=== PATIENT | male | born 1940 | race Caucasian/White ===

== ENCOUNTER 2022-09-27 15:17 | Inpatient (IN) | payer MEDICARE, OTHER ==
--- NOTE | 2022-09-27 15:57 | ED ---
General Adult HPI - General Chief complaint: Recheck/Abnormal Lab/Rx Stated complaint: Fever, Low O2 Time Seen by Provider: 09/27/22 15:56 Source: patient, family Mode of arrival: ambulatory Limitations: no limitations - History of Present Illness Initial comments: Patient presents to the ED with his and daughter for evaluation. Patient is on vacation in town from [place]. Per , the patient has had an intermittent fever for the past 3 days, as well as a cough and rhinorrhea. Per , the patient was seen by an urgent care provider a couple of days ago and diagnosed with "double pneumonia" by physical examination only. states the patient did not have a chest x-ray performed. states that the patient finished a three-week course of levofloxacin yesterday that he was prescribed after being diagnosed with "E. coli and pseudomonas infections of his lungs and sinuses". states that the patient is up-to-date on his Covid and influenza immunizations, and he had negative Covid and influenza tests performed at the urgent care a couple of days ago. states that she has been giving the patient extra strength Tylenol for his fever, and she last gave him a dose of it earlier today. states that they obtained an O2 sat reading of 88% using a home O2 device today, and that is why they have brought him to the ED. Patient admits to having mild dyspnea. Patient also admits to having mild urinary frequency. Patient denies having any pain, headache, focal neuro deficit, neck pain or stiffness, sore throat, chest pain or pressure, hemoptysis, palpitations, dizziness, syncope, abdominal pain, nausea/vomiting/diarrhea, bloody or melanotic stool, dysuria, hematuria, decreased urine output, leg or calf swelling or pain, or any other symptoms or complaints. - Related Data Allergies Allergy/AdvReac Type Severity Reaction Status Date / Time No Known Allergies Allergy Verified 09/27/22 15:26 Review of Systems ROS Statement: Those systems with pertinent positive or pertinent negative responses have been documented in the HPI. ROS Other: All systems not noted in ROS Statement are negative. Past Medical History Past Medical History: Atrial Fibrillation, Coronary Artery Disease (CAD), Cancer, COPD, Diabetes Mellitus, Hyperlipidemia, Hypertension, Pneumonia, Thyroid Disorder Additional Past Medical History / Comment(s): gout, colon cancer, pulmonary fibrosis, bronchiectasis History of Any Multi-Drug Resistant Organisms: Unobtainable Past Surgical History: Bowel Resection, Heart Catheterization With Stent, Hernia Repair, Pacemaker Past Psychological History: No Psychological Hx Reported Smoking Status: Former smoker Past Alcohol Use History: None Reported Past Drug Use History: None Reported General Exam Limitations: no limitations General appearance: alert, in no apparent distress Head exam: Present: normocephalic Eye exam: Present: normal appearance ENT exam: Present: normal oropharynx, mucous membranes moist Neck exam: Present: other (Trachea is in midline). Absent: tenderness, meningismus Respiratory exam: Present: normal lung sounds bilaterally. Absent: respiratory distress, wheezes, rales, rhonchi, stridor Cardiovascular Exam: Present: regular rate, normal rhythm, normal heart sounds, other (Normal radial pulses bilaterally) GI/Abdominal exam: Present: soft. Absent: distended, tenderness, guarding Extremities exam: Present: other (Negative Homans sign bilaterally). Absent: tenderness, pedal edema, calf tenderness Back exam: Absent: CVA tenderness (R), CVA tenderness (L) Neurological exam: Present: alert, oriented X3 Psychiatric exam: Present: normal affect, normal mood Skin exam: Present: warm, dry, intact, normal color Course Vital Signs 09/27/22 09/27/22 15:19 18:18 Temperature 98.5 F 100.1 F H Pulse Rate 82 76 Respiratory 22 15 Rate Blood Pressure 128/63 132/66 O2 Sat by Pulse 94 L 95 Oximetry - Reevaluation(s) Reevaluation #1: 09/27/22 18:00 Patient denies development of any new symptoms while in the ED. Patient remains alert and breathing comfortably. Patient and are aware of the patient's test results, and patient agrees with hospital admission at this time. 09/27/22 18:26 Case, H&P, test results and ED management thus far were discussed with Dr. Moss. She accepts hospital admission. He agrees with infectious disease consultation. She has no further recommendations at this time. EKG Findings - EKG Comments: EKG Findings:: ED physician interpretation (interpreted by me): Sinus rhythm with first-degree AV block, ventricular rate of 75 bpm, VT interval of 228 ms, normal QRS duration, normal QT interval, borderline rightward axis, inferolateral ST and T-wave abnormality, no ST elevation, no old EKG is available for comparison Medical Decision Making - Medical Decision Making Was pt. sent in by a medical professional or institution (ANDRY Ely, SPORTS INFORMATION DIRECTOR, urgent care, hospital, or intermediate...) When possible be specific @ -No Did you speak to anyone other than the patient for history (EMS, parent, family, police, friend...)? What history was obtained from this source @ -History was also obtained from the patient's . Did you review nursing and triage notes (agree or disagree)? Why? @ -I reviewed and agree with nursing and triage notes Were old charts reviewed (outside hosp., previous admission, EMS record, old EKG, old radiological studies, urgent care reports/EKG's, intermediate records)? Report findings @ -No old charts were reviewed Differential Diagnosis (chest pain, altered mental status, abdominal pain women, abdominal pain men, vaginal bleeding, weakness, fever, dyspnea, syncope, headache, dizziness, GI bleed, back pain, seizure, CVA, palpatations, mental health, musculoskeletal)? @ -Differential Fever: Pneumonia, viral URI, Covid, bronchitis, influenza, endocarditis, myocarditis, sinusitis, UTI, pyelonephritis, prostatitis, hypoxia, COPD, this is not meant to be an all-inclusive list. EKG interpreted by me (3pts min.). @ -As above X-rays interpreted by me (1pt min.). @ -Chest x-ray was reviewed myself and shows a left basilar infiltrate consistent with pneumonia. I agree with the radiologist's interpretation as above. CT interpreted by me (1pt min.). @ -None done U/S interpreted by me (1pt. min.). @ -None done What testing was considered but not performed or refused? (CT, X-rays, U/S, labs)? Why? @ -None What meds were considered but not given or refused? Why? @ -None Did you discuss the management of the patient with other professionals (professionals i.e. ANDRY Ely, SPORTS INFORMATION DIRECTOR, lab, RT, psych nurse, social media intern, board certified behavioral analyst, teacher, property disposal officer, case maker)? Give summary @ -No Was smoking cessation discussed for >3mins.? @ -No Was critical care preformed (if so, how long)? @ -No Were there social determinants of health that impacted care today? How? (Homelessness, low income, unemployed, alcoholism, drug addiction, transportation, low edu. Level, literacy, decrease access to med. care, [facility], rehab)? @ -No Was there de-escalation of care discussed even if they declined (Discuss DNR or withdrawal of care, Hospice)? DNR status @ -No What co-morbidities impacted this encounter? (DM, HTN, Smoking, COPD, CAD, Cancer, CVA, ARF, Chemo, Hep., AIDS, mental health diagnosis, sleep apnea, morbid obesity)? @ -None Was patient admitted / discharged? Hospital course, mention meds given and route, prescriptions, significant lab abnormalities, going to OR and other pertinent info. @ -Given the patient's fever, chest x-ray findings consistent with pneumonia and reported hypoxia, will admit the patient to the hospital for IV and about treatment. Patient's reports that the patient recently completed a 3 week course of Levaquin, which complicates the patient's pneumonia treatment. IV cefepime has been ordered and administered in the ED after cultures were ob tained. Infectious disease consultation order has been placed. Dr. Moss has accepted hospital admission. Undiagnosed new problem with uncertain prognosis? @ -No Drug Therapy requiring intensive monitoring for toxicity (Heparin, Nitro, Insuli n, Cardizem)? @ -No Were any procedures done? @ -No Diagnosis/symptom? @ -Acute febrile illness Acute, or Chronic, or Acute on Chronic? @ -Acute Uncomplicated (without systemic symptoms) or Complicated (systemic symptoms)? @ -default Side effects of treatment? @ -No Exacerbation, Progression, or Severe Exacerbation? @ -No Poses a threat to life or bodily function? How? (Chest pain, [place], [place], pneumonia, PE, COPD, DKA, ARF, appy, cholecystitis, CVA, Diverticulitis, Homicidal, Suicidal, threat to staff... and all critical care pts) @ -No Diagnosis/symptom? @ -Left-sided pneumonia Acute, or Chronic, or Acute on Chronic? @ -default Uncomplicated (without systemic symptoms) or Complicated (systemic symptoms)? @ -default Side effects of treatment? @ -none Exacerbation, Progression, or Severe Exacerbation] @ -no Poses a threat to life or bodily function? @ -no - Lab Data Result diagrams: 09/27/22 16:35 09/27/22 16:59 Lab Results 09/27/22 09/27/22 09/27/22 Range/Units 16:35 16:59 16:59 WBC 13.2 H (3.8-10.6) k/uL RBC 4.53 (4.30-5.90) m/uL Hgb 14.4 (13.0-17.5) gm/dL Hct 43.3 (39.0-53.0) % MCV 95.8 (80.0-100.0) fL MCH 31.9 (25.0-35.0) pg MCHC 33.3 (31.0-37.0) g/dL RDW 13.7 (11.5-15.5) % Plt Count 202 (150-450) k/uL MPV 8.2 Neutrophils % 86 % Lymphocytes % 4 % Monocytes % 7 % Eosinophils % 1 % Basophils % 0 % Neutrophils # 11.4 H (1.3-7.7) k/uL Lymphocytes # 0.6 L (1.0-4.8) k/uL Monocytes # 0.9 (0-1.0) k/uL Eosinophils # 0.1 (0-0.7) k/uL Basophils # 0.0 (0-0.2) k/uL PT 10.0 (9.0-12.0) sec INR 0.9 (<1.2) APTT 25.9 (22.0-30.0) sec Sodium 133 L (137-145) mmol/L Potassium 4.6 (3.5-5.1) mmol/L Chloride 99 (98-107) mmol/L Carbon Dioxide 25 (22-30) mmol/L Anion Gap 9 mmol/L BUN 34 H (9-20) mg/dL Creatinine 1.33 H (0.66-1.25) mg/dL Est GFR (CKD-EPI)AfAm 58 (>60 ml/min/1.73 sqM) Est GFR (CKD-EPI)NonAf 50 (>60 ml/min/1.73 sqM) Glucose 211 H (74-99) mg/dL Plasma Lactic Acid Sudhakar (0.7-2.0) mmol/L Calcium 8.4 (8.4-10.2) mg/dL Total Bilirubin 1.1 (0.2-1.3) mg/dL AST 43 (17-59) U/L ALT 26 (4-49) U/L Alkaline Phosphatase 56 (38-126) U/L Troponin I (0.000-0.034) ng/mL Total Protein 6.2 L (6.3-8.2) g/dL Albumin 3.3 L (3.5-5.0) g/dL Urine RBC (0-5) /hpf Urine WBC (0-5) /hpf Ur Squamous Epith Cells (0-4) /hpf Urine Mucus (None) /hpf Influenza Type A (PCR) (Not Detectd) Influenza Type B (PCR) (Not Detectd) RSV (PCR) (Not Detectd) SARS-CoV-2 (PCR) (Not Detectd) 09/27/22 09/27/22 09/27/22 Range/Units 16:59 16:59 17:09 WBC (3.8-10.6) k/uL RBC (4.30-5.90) m/uL Hgb (13.0-17.5) gm/dL Hct (39.0-53.0) % MCV (80.0-100.0) fL MCH (25.0-35.0) pg MCHC (31.0-37.0) g/dL RDW (11.5-15.5) % Plt Count (150-450) k/uL MPV Neutrophils % % Lymphocytes % % Monocytes % % Eosinophils % % Basophils % % Neutrophils # (1.3-7.7) k/uL Lymphocytes # (1.0-4.8) k/uL Monocytes # (0-1.0) k/uL Eosinophils # (0-0.7) k/uL Basophils # (0-0.2) k/uL PT (9.0-12.0) sec INR (<1.2) APTT (22.0-30.0) sec Sodium (137-145) mmol/L Potassium (3.5-5.1) mmol/L Chloride (98-107) mmol/L Carbon Dioxide (22-30) mmol/L Anion Gap mmol/L BUN (9-20) mg/dL Creatinine (0.66-1.25) mg/dL Est GFR (CKD-EPI)AfAm (>60 ml/min/1.73 sqM) Est GFR (CKD-EPI)NonAf (>60 ml/min/1.73 sqM) Glucose (74-99) mg/dL Plasma Lactic Acid Sudhakar 1.4 (0.7-2.0) mmol/L Calcium (8.4-10.2) mg/dL Total Bilirubin (0.2-1.3) mg/dL AST (17-59) U/L ALT (4-49) U/L Alkaline Phosphatase (38-126) U/L Troponin I 0.020 (0.000-0.034) ng/mL Total Protein (6.3-8.2) g/dL Albumin (3.5-5.0) g/dL Urine RBC 1 (0-5) /hpf Urine WBC 1 (0-5) /hpf Ur Squamous Epith Cells <1 (0-4) /hpf Urine Mucus Rare H (None) /hpf Influenza Type A (PCR) (Not Detectd) Influenza Type B (PCR) (Not Detectd) RSV (PCR) (Not Detectd) SARS-CoV-2 (PCR) (Not Detectd) 09/27/22 Range/Units 17:09 WBC (3.8-10.6) k/uL RBC (4.30-5.90) m/uL Hgb (13.0-17.5) gm/dL Hct (39.0-53.0) % MCV (80.0-100.0) fL MCH (25.0-35.0) pg MCHC (31.0-37.0) g/dL RDW (11.5-15.5) % Plt Count (150-450) k/uL MPV Neutrophils % % Lymphocytes % % Monocytes % % Eosinophils % % Basophils % % Neutrophils # (1.3-7.7) k/uL Lymphocytes # (1.0-4.8) k/uL Monocytes # (0-1.0) k/uL Eosinophils # (0-0.7) k/uL Basophils # (0-0.2) k/uL PT (9.0-12.0) sec INR (<1.2) APTT (22.0-30.0) sec Sodium (137-145) mmol/L Potassium (3.5-5.1) mmol/L Chloride (98-107) mmol/L Carbon Dioxide (22-30) mmol/L Anion Gap mmol/L BUN (9-20) mg/dL Creatinine (0.66-1.25) mg/dL Est GFR (CKD-EPI)AfAm (>60 ml/min/1.73 sqM) Est GFR (CKD-EPI)NonAf (>60 ml/min/1.73 sqM) Glucose (74-99) mg/dL Plasma Lactic Acid Sudhakar (0.7-2.0) mmol/L Calcium (8.4-10.2) mg/dL Total Bilirubin (0.2-1.3) mg/dL AST (17-59) U/L ALT (4-49) U/L Alkaline Phosphatase (38-126) U/L Troponin I (0.000-0.034) ng/mL Total Protein (6.3-8.2) g/dL Albumin (3.5-5.0) g/dL Urine RBC (0-5) /hpf Urine WBC (0-5) /hpf Ur Squamous Epith Cells (0-4) /hpf Urine Mucus (None) /hpf Influenza Type A (PCR) Not Detected (Not Detectd) Influenza Type B (PCR) Not Detected (Not Detectd) RSV (PCR) Not Detected (Not Detectd) SARS-CoV-2 (PCR) Not Detected (Not Detectd) - Radiology Data Chest x-ray: 1. Left basilar infiltrate. Findings can be compatible with pneumonia in the proper clinical setting. Disposition Clinical Impression: Pneumonia, Acute febrile illness Disposition: ADMITTED IP TO THIS [facility] Condition: Stable Is patient prescribed a controlled substance at d/c from ED?: No Referrals: Nonstaff,Physician [Primary Care Provider] - 1-2 days Time of Disposition: 18:26
[2022-09-27 17:04] LABS: Basophils % (A) 0 %; Eosinophils # (A) 0.1 k/uL (0-0.7); Eosinophils % (A) 1 %; HCT 43.3 % (39.0-53.0); HGB 14.4 gm/dL (13.0-17.5); Lymphocytes # (A) 0.6 k/uL (1.0-4.8); Lymphocytes % (A) 4 %; MCH 31.9 pg (25.0-35.0); MCHC 33.3 g/dL (31.0-37.0); MCV 95.8 fL (80.0-100.0); Mean Platelet Volume 8.2; Monocytes # (A) 0.9 k/uL (0-1.0); Monocytes % (A) 7 %; Neutrophils # (A) 11.4 k/uL (1.3-7.7); Neutrophils % (A) 86 %; Platelet Count 202 k/uL (150-450); RBC 4.53 m/uL (4.30-5.90); RDW 13.7 % (11.5-15.5); WBC 13.2 k/uL (3.8-10.6)
[2022-09-27 17:15] LABS: ALT 26 U/L (4-49); African American GFR (CKD) 58 (>60 ml/min/1.73 sqM); Albumin 3.3 g/dL (3.5-5.0); Anion Gap 9 mmol/L; Blood Urea Nitrogen 34 mg/dL (9-20); Calcium 8.4 mg/dL (8.4-10.2); Carbon Dioxide 25 mmol/L (22-30); Chloride 99 mmol/L (98-107); Glucose 211 mg/dL (74-99); INR 0.9 (<1.2); Non-African American GFR(CKD) 50 (>60 ml/min/1.73 sqM); Partial Thromboplastin Time 25.9 sec (22.0-30.0); Sodium 133 mmol/L (137-145); Total Bilirubin 1.1 mg/dL (0.2-1.3); Total Protein 6.2 g/dL (6.3-8.2)
--- NOTE | 2022-09-27 17:16 | XR ---
EXAMINATION TYPE: XR chest 2V DATE OF EXAM: 09/27/2022 COMPARISON: None INDICATION: Fever, recent diagnosis of pneumonia TECHNIQUE: Frontal and lateral views of the chest are obtained. FINDINGS: The heart size is normal. The pulmonary vasculature is normal. Mild infiltrate is at the left base. Coronal for atelectasis or pneumonia. Minimal blunting of the ri ght costophrenic angle may be atelectasis or small effusion. Posterior infiltrate may be present on t he lateral projection.. IMPRESSION: 1. Left basilar infiltrate. Findings can be compatible with pneumonia in the proper clinical setting.
[2022-09-27 17:25] LABS: Mucus,Urine Rare /hpf; RBC,Urine 1 /hpf (0-5); Squamous Epithelial Cell,Urine <1 /hpf (0-4); WBC,Urine 1 /hpf (0-5)
[2022-09-27 17:30] LABS: AST 43 U/L (17-59); Alkaline Phosphatase 56 U/L (38-126)
[2022-09-27 17:31] LABS: Potassium 4.6 mmol/L (3.5-5.1)
[2022-09-27] MEDS ORDERED: CEFEPIME 2 GM in SODIUM CHLORIDE 0.9% 100 ML IVPB STA (17:47)
[2022-09-27] MEDS ORDERED: SODIUM CHLORIDE 0.9% 500 ML 500 ML IV ONE (17:52)
[2022-09-27] MEDS ORDERED: ACETAMINOPHEN TAB 500 MG TAB PO STA (18:20)
[2022-09-27] MEDS ORDERED: NALOXONE 0.4 MG/ML 1 ML VIAL IV PRN (18:39)
[2022-09-27 18:48] LABS: Appearance,Urine Clear (Clear); Bilirubin,Urine Negative (Negative); Blood,Urine Negative (Negative); Color,Urine Yellow; Glucose,Urine (UA) 4+ (Negative); Ketones,Urine Negative (Negative); Leukocyte Esterase,Urine Negative (Negative); Nitrite,Urine Negative (Negative); Protein,Urine 1+ (Negative); Specific Gravity,Urine 1.035 (1.001-1.035); Urobilinogen,Urine <2.0 mg/dL (<2.0)
[2022-09-27] MEDS: carvediloL 6.25 MG TAB PO SCH (21:34)
[2022-09-27] MEDS: ATORVASTATIN 40 MG TAB PO SCH (21:34)
[2022-09-27] MEDS: GLIMEPIRIDE 2 MG TAB PO SCH (21:35)
[2022-09-27] MEDS: EZETIMIBE 10 MG TAB PO SCH (21:35)
[2022-09-27] MEDS: ACETAMINOPHEN TAB 325 MG TAB PO PRN (23:56)
[2022-09-27] MEDS: guaiFENesin SYRUP 100MG/5ML 200 MG/10 ML CUP PO PRN (23:56)
[2022-09-27] MEDS: SACUBITRIL/VALSARTAN 24 MG-26 MG TABLET PO SCH (23:57)
[2022-09-28] MEDS: LEVOTHYROXINE 100 MCG TAB PO SCH (06:20)
[2022-09-28 07:16] LABS: Glucose,Whole Blood 109 mg/dL (70-110)
[2022-09-28] MEDS: IPRATROPIUM 0.5 MG/2.5 ML NEBU INHALATION SCH ×4 (07:34→22:33)
[2022-09-28] MEDS: SYMBICORT 80-4.5 MCG INHALER INHALATION SCH ×2 (07:34→22:34)
[2022-09-28] MEDS ORDERED: NON FORMULARY DRUG (Fluticasone/Umeclidin/Vilanter [Trelegy Ellipta 100-62.5-25] 1 EACH Bl INHALATION SCH (08:00)
[2022-09-28 09:05] LABS: HCT 39.5 % (39.6-50.0); HGB 12.9 d/dL (13.0-17.0); MCH 30.8 pg (27.0-32.0); MCHC 32.7 d/dL (32.0-37.0); MCV 94.3 FL (80.0-97.0); Mean Platelet Volume 10.6 FL (9.5-12.2); NRBC Per 100 WBC 0 X 10*3/uL (0.00-0.01); Platelet Count 217 X 10*3/uL (140-440); RBC 4.19 X 10*6/uL (4.40-5.60); RDW 14.3 % (11.5-14.5)
[2022-09-28 09:12] LABS: BUN/Creat Ratio 20.62 Ratio (12.00-20.00); Blood Urea Nitrogen 26.8 mg/dL (9.0-27.0); Calcium 8.3 mg/dL (8.7-10.3); Carbon Dioxide 22.3 mmol/L (21.6-31.8); Chloride 102 mmol/L (96-109); Glucose 117 mg/dL (70-110); Sodium 136 mmol/L (135-145)
[2022-09-28] MEDS: SPIRONOLACTONE 25 MG TAB PO SCH ×2 (09:30→19:48)
[2022-09-28] MEDS: FERROUS SULFATE 325 MG TAB PO SCH (09:30)
[2022-09-28] MEDS: GLIMEPIRIDE 2 MG TAB PO SCH ×2 (09:31→19:48)
[2022-09-28] MEDS: carvediloL 6.25 MG TAB PO SCH ×2 (09:31→18:17)
[2022-09-28] MEDS: FLUTICASONE 50MCG/SPRAY NASAL 16GM EA NOSTRIL SCH (09:31)
[2022-09-28] MEDS: DAPAGLIFLOZIN PROPANEDIOL 5 MG TABLET PO SCH (09:31)
[2022-09-28] MEDS: CLOPIDOGREL 75 MG TAB PO SCH (09:31)
[2022-09-28] MEDS: SACUBITRIL/VALSARTAN 24 MG-26 MG TABLET PO SCH ×2 (09:32→19:43)
[2022-09-28 10:04] LABS: Basophils # (A) 0.06 X 10*3/uL (0.00-0.10); Basophils % (A) 0.6 %; Eosinophils # (A) 0.01 X 10*3/uL (0.04-0.35); Eosinophils % (A) 0.1 %; Lymphocytes % (A) 5.6 %; Macrocytosis (M) 2+; Monocytes # (A) 1.26 X 10*3/uL (0.20-1.00); Monocytes % (A) 11.8 %; Neutrophils # (A) 8.72 X 10*3/uL (1.80-7.70); Neutrophils % (A) 81.4 %
[2022-09-28] MEDS: ACETAMINOPHEN TAB 325 MG TAB PO PRN ×2 (10:38→19:38)
--- NOTE | 2022-09-28 11:13 | P.HPIM ---
History of Present Illness H&P Date: 09/27/22 Chief Complaint: Fever/shortness of breath Patient presents to the ED with his and daughter for evaluation. Patient is on vacation in town from [place]. Per , the patient has had an intermittent fever for the past 3 days, as well as a cough and rhinorrhea. Per , the patient was seen by an urgent care provider a couple of days ago and diagnosed with "double pneumonia" by physical examination only. states the patient did not have a chest x-ray performed. states that the patient finished a three-week course of levofloxacin yesterday that he was prescribed after being diagnosed with "E. coli and pseudomonas infections of his lungs and sinuses". states that the patient is up-to-date on his Covid and influenza immunizations, and he had negative Covid and influenza tests performed at the urgent care a couple of days ago. states that she has been giving the patient extra strength Tylenol for his fever, and she last gave him a dose of it earlier today. states that they obtained an O2 sat reading of 88% using a home O2 device today, and that is why they have brought him to the ED. Patient admits to having mild dyspnea. Patient also admits to having mild urinary frequency, without dysuria or hematuria. EKG Findings: Sinus rhythm with first-degree AV block, ventricular rate of 75 bpm, NV interval of 228 ms, normal QRS duration, normal QT interval, borderline rightward axis, inferolateral ST and T-wave abnormality, no ST elevation, no old EKG is available for comparison Blood work reveals a WBC of 13.2, hemoglobin of 14.4 and platelet count of 202, sodium 133, potassium 4.6, BUN/creatinine of 34/1.33 and blood glucose of 211, lactic acid normal at 1.4, troponin of 0.020, UA is unremarkable, influenza A and B, RSV and COVID-19 PCR negative Chest x-ray reveals left basilar infiltrate consistent with pneumonia; IV cefepime has been ordered and administered in the ED after cultures were obtained. Infectious disease consultation order has been placed. Review of Systems REVIEW OF SYSTEMS: CONSTITUTIONAL: No fever, no malaise, no fatigue. HEENT: No recent visual problems or hearing problems. Denied any sore throat. CARDIOVASCULAR: No chest pain, orthopnea, PND, no palpitations, no syncope. PULMONARY: No shortness of breath, no cough, no hemoptysis. GASTROINTESTINAL: No diarrhea, no nausea, no vomiting, no abdominal pain. NEUROLOGICAL: No headaches, no weakness, no numbness. HEMATOLOGICAL: Denies any bleeding or petechiae. GENITOURINARY: Denies any burning micturition, frequency, or urgency. MUSCULOSKELETAL/RHEUMATOLOGICAL: Denies any joint pain, swelling, or any muscle pain. ENDOCRINE: Denies any polyuria or polydipsia. The rest of the 14-point review of systems is negative. Past Medical History Past Medical History: Atrial Fibrillation, Coronary Artery Disease (CAD), Cancer, COPD, Diabetes Mellitus, Hyperlipidemia, Hypertension, Pneumonia, Thyroid Disorder Additional Past Medical History / Comment(s): gout, colon cancer, pulmonary fibrosis, bronchiectasis History of Any Multi-Drug Resistant Organisms: Unobtainable Past Surgical History: Bowel Resection, Heart Catheterization With Stent, Hernia Repair, Pacemaker Past Psychological History: No Psychological Hx Reported Smoking Status: Former smoker Past Alcohol Use History: None Reported Past Drug Use History: None Reported Medications and Allergies Home Medications Medication Instructions Recorded Confirmed Type Atorvastatin [Lipitor] 40 mg PO HS 09/27/22 09/27/22 History Clopidogrel [Plavix] 75 mg PO DAILY 09/27/22 09/27/22 History Diclofenac Sodium Gel [Voltaren 2 gm TOPICAL QID PRN 09/27/22 09/27/22 History Gel] Empagliflozin [Jardiance] 10 mg PO DAILY 09/27/22 09/27/22 History Eplerenone 25 mg PO DAILY 09/27/22 09/27/22 History Ezetimibe [Zetia] 10 mg PO HS 09/27/22 09/27/22 History Ferrous Sulfate [Feosol] 325 mg PO DAILY 09/27/22 09/27/22 History Fluticasone Nasal [place] [Flonase 1 spray EA NOSTRIL DAILY 09/27/22 09/27/22 History Nasal [place]] Fluticasone/Umeclidin/Vilanter 1 puff INHALATION RT-DAILY 09/27/22 09/27/22 History [Trelegy Ellipta 100-62.5-25] Glimepiride [Amaryl] 2 mg PO BID 09/27/22 09/27/22 History Levothyroxine Sodium [Synthroid] 100 mcg PO DAILY 09/27/22 09/27/22 History Sacubitril/Valsartan [Entresto 24 1 tab PO BID 09/27/22 09/27/22 History mg-26 mg Tablet] allopurinoL [Zyloprim] 300 mg PO MOWEFR 09/27/22 09/27/22 History carvediloL [Coreg] 6.25 mg PO BID 09/27/22 09/27/22 History Allergies Allergy/AdvReac Type Severity Reaction Status Date / Time No Known Allergies Allergy Verified 09/27/22 18:50 Physical Exam Vitals: Vital Signs Temp Pulse Resp BP Pulse Ox 09/27/22 19:28 100.9 F H 72 18 105/57 94 L 09/27/22 18:18 100.1 F H 76 15 132/66 95 09/27/22 15:19 98.5 F 82 22 128/63 94 L Intake and Output 09/27/22 09/27/22 09/27/22 06:59 14:59 22:59 Other: Weight 74.843 kg General appearance: alert, in no apparent distress Head exam: Present: normocephalic Eye exam: Present: normal appearance ENT exam: Present: normal oropharynx, mucous membranes moist Neck exam: Present: other (Trachea is in midline). Absent: tenderness, meningismus Respiratory exam: Present: normal lung sounds bilaterally. Absent: respiratory distress, wheezes, rales, rhonchi, stridor Cardiovascular Exam: Present: regular rate, normal rhythm, normal heart sounds, other (Normal radial pulses bilaterally) GI/Abdominal exam: Present: soft. Absent: distended, tenderness, guarding Extremities exam: Present: other (Negative Homans sign bilaterally). Absent: tenderness, pedal edema, calf tenderness Back exam: Absent: CVA tenderness (R), CVA tenderness (L) Neurological exam: Present: alert, oriented X3 Psychiatric exam: Present: normal affect, normal mood Skin exam: Present: warm, dry, intact, normal color Results CBC & Chem 7: 09/28/22 06:19 09/28/22 06:19 Labs: Abnormal Lab Results - Last 24 Hours (Table) 09/27/22 09/27/22 09/27/22 Range/Units 16:35 16:59 17:09 WBC 13.2 H (3.8-10.6) k/uL Neutrophils # 11.4 H (1.3-7.7) k/uL Lymphocytes # 0.6 L (1.0-4.8) k/uL Sodium 133 L (137-145) mmol/L BUN 34 H (9-20) mg/dL Creatinine 1.33 H (0.66-1.25) mg/dL Glucose 211 H (74-99) mg/dL Total Protein 6.2 L (6.3-8.2) g/dL Albumin 3.3 L (3.5-5.0) g/dL Urine Protein 1+ H (Negative) Urine Glucose (UA) 4+ H (Negative) Urine Mucus Rare H (None) /hpf Assessment and Plan Assessment: 1. Left basilar pneumonia; failing outpatient treatment - Patient reports being treated for pneumonia with oral Levaquin for a total of 3 week therapy - Patient isn't placed on IV cefepime from ED; we will continue for now and consult ID for further recommendations on antibiotic therapy - Cultures are obtained; we will monitor CBC, CMP and pro-calcitonin 2. Acute renal injury/likely chronic kidney disease; baseline creatinine is unknown; patient is placed on slow/cautious IV fluid hydration with normal saline at rate of 75 mL an hour; we will monitor strict CAITLYN's, daily weights, renal function and electrolytes; avoid nephrotoxins and hypotension 3. Hypertension; Coreg 6.25 mg twice a day, Entresto 2426 milligrams 1 twice a day; Aldactone 25 mg twice a day 4. Hyperlipidemia; Lipitor 40 mg daily at bedtime; Zetia 10 mg daily 5. Hypothyroidism; levothyroxin 100 MCG daily 6. Diabetes mellitus 2; we will continue with home dose of Amaryl 2 mg twice a day along with Farxiga 5 mg daily 7. COPD; not in exacerbation; continue with home inhaler therapy and Atrovent nebulizer treatments 4 times a day and when necessary; Trelechrissy Ellipta 8. Atrial fibrillation; rate controlled on Coreg 6.25 mg twice a day; patient is on Plavix but no anticoagulation therapy 9. Coronary artery disease; continue with aspirin, Plavix, beta blockers and statin therapy DVT prophylaxis; SCDs/subcu heparin CODE STATUS; full code
[2022-09-28 11:23] LABS: Glucose,Whole Blood 160 mg/dL (70-110)
[2022-09-28] MEDS: CEFEPIME 2 GM in SODIUM CHLORIDE 0.9% 100 ML IVPB SCH (15:01)
[2022-09-28 17:27] LABS: Glucose,Whole Blood 187 mg/dL (70-110)
[2022-09-28] MEDS ORDERED: DEXTROSE 50% SYRINGE 50 ML IVP PRN ×2 (18:41)
[2022-09-28] MEDS: EZETIMIBE 10 MG TAB PO SCH (19:48)
[2022-09-28] MEDS: ATORVASTATIN 40 MG TAB PO SCH (19:48)
[2022-09-28 20:08] LABS: Glucose,Whole Blood 308 mg/dL (70-110)
[2022-09-28] MEDS: INSULIN ASPART (NovoLOG) 100 UNIT/ML VIAL SQ SCH (20:16)
--- NOTE | 2022-09-28 20:17 | P.PN ---
Subjective Progress Note Date: 09/28/22 Principal diagnosis: (Basilar pneumonia, failing outpatient treatment Acute renal injury Patient presents to the ED with his and daughter for evaluation. Patient is on vacation in town from [place]. Per , the patient has had an intermittent fever for the past 3 days, as well as a cough and rhinorrhea. Per , the patient was seen by an urgent care provider a couple of days ago and diagnosed with "double pneumonia" by physical examination only. states the patient did not have a chest x-ray performed. states that the patient finished a three-week course of levofloxacin yesterday that he was prescribed after being diagnosed with "E. coli and pseudomonas infections of his lungs and sinuses". states that the patient is up-to-date on his Covid and influenza immunizations, and he had negative Covid and influenza tests performed at the urgent care a couple of days ago. states that she has been giving the patient extra strength Tylenol for his fever, and she last gave him a dose of it earlier today. states that they obtained an O2 sat reading of 88% using a home O2 device today, and that is why they have brought him to the ED. Patient admits to having mild dyspnea. Patient also admits to having mild urinary frequency, without dysuria or hematuria. EKG Findings: Sinus rhythm with first-degree AV block, ventricular rate of 75 bpm, CA interval of 228 ms, normal QRS duration, normal QT interval, borderline rightward axis, inferolateral ST and T-wave abnormality, no ST elevation, no old EKG is available for comparison Blood work reveals a WBC of 13.2, hemoglobin of 14.4 and platelet count of 202, sodium 133, potassium 4.6, BUN/creatinine of 34/1.33 and blood glucose of 211, lactic acid normal at 1.4, troponin of 0.020, UA is unremarkable, influenza A and B, RSV and COVID-19 PCR negative Chest x-ray reveals left basilar infiltrate consistent with pneumonia; IV cefepime has been ordered and administered in the ED after cultures were obtained. Infectious disease consultation order has been placed. Objective - Vital Signs Vital signs: Vital Signs Temp 99.4 F 09/28/22 07:11 Pulse 72 09/28/22 07:45 Resp 16 09/28/22 07:11 BP 108/57 09/28/22 07:11 Pulse Ox 92 L 09/28/22 07:11 FiO2 Intake & Output 09/27/22 09/28/22 09/28/22 18:59 06:59 18:59 Weight 74.843 kg 74.843 kg Other: # Voids 1 - Exam General appearance: alert, in no apparent distress Head exam: Present: normocephalic Eye exam: Present: normal appearance ENT exam: Present: normal oropharynx, mucous membranes moist Neck exam: Present: other (Trachea is in midline). Absent: tenderness, meningismus Respiratory exam: Present: normal lung sounds bilaterally. Absent: respiratory distress, wheezes, rales, rhonchi, stridor Cardiovascular Exam: Present: regular rate, normal rhythm, normal heart sounds, other (Normal radial pulses bilaterally) GI/Abdominal exam: Present: soft. Absent: distended, tenderness, guarding Extremities exam: Present: other (Negative Homans sign bilaterally). Absent: tenderness, pedal edema, calf tenderness Back exam: Absent: CVA tenderness (R), CVA tenderness (L) Neurological exam: Present: alert, oriented X3 Psychiatric exam: Present: normal affect, normal mood Skin exam: Present: warm, dry, intact, normal color - Labs CBC & Chem 7: 09/28/22 06:19 09/28/22 06:19 Labs: Abnormal Lab Results - Last 24 Hours (Table) 09/27/22 09/27/22 09/27/22 Range/Units 16:35 16:59 17:09 WBC 13.2 H (3.8-10.6) k/uL RBC (4.40-5.60) X 10*6/uL Hgb (13.0-17.0) d/dL Hct (39.6-50.0) % Neutrophils # 11.4 H (1.3-7.7) k/uL Lymphocytes # 0.6 L (1.0-4.8) k/uL Monocytes # (0.20-1.00) X 10*3/uL Eosinophils # (0.04-0.35) X 10*3/uL Macrocytosis (manual) Sodium 133 L (137-145) mmol/L BUN 34 H (9-20) mg/dL Creatinine 1.33 H (0.66-1.25) mg/dL Est GFR (CKD-EPI) (>=60) BUN/Creatinine Ratio (12.00-20.00) Ratio Glucose 211 H (74-99) mg/dL Calcium (8.7-10.3) mg/dL Total Protein 6.2 L (6.3-8.2) g/dL Albumin 3.3 L (3.5-5.0) g/dL Urine Protein 1+ H (Negative) Urine Glucose (UA) 4+ H (Negative) Urine Mucus Rare H (None) /hpf 09/28/22 09/28/22 Range/Units 06:19 06:19 WBC 10.70 H (3.8-10.6) k/uL RBC 4.19 L (4.40-5.60) X 10*6/uL Hgb 12.9 L (13.0-17.0) d/dL Hct 39.5 L (39.6-50.0) % Neutrophils # 8.72 H (1.3-7.7) k/uL Lymphocytes # 0.60 L (1.0-4.8) k/uL Monocytes # 1.26 H (0.20-1.00) X 10*3/uL Eosinophils # 0.01 L (0.04-0.35) X 10*3/uL Macrocytosis (manual) 2+ A Sodium (137-145) mmol/L BUN (9-20) mg/dL Creatinine (0.66-1.25) mg/dL Est GFR (CKD-EPI) 55 L (>=60) BUN/Creatinine Ratio 20.62 H (12.00-20.00) Ratio Glucose 117 H (74-99) mg/dL Calcium 8.3 L (8.7-10.3) mg/dL Total Protein (6.3-8.2) g/dL Albumin (3.5-5.0) g/dL Urine Protein (Negative) Urine Glucose (UA) (Negative) Urine Mucus (None) /hpf Assessment and Plan Assessment: 1. Left basilar pneumonia; failing outpatient treatment - Patient reports being treated for pneumonia with oral Levaquin for a total of 3 week therapy - Patient isn't placed on IV cefepime from ED; we will continue for now and consult ID for further recommendations on antibiotic therapy - Cultures are obtained; we will monitor CBC, CMP and pro-calcitonin 2. Acute renal injury/likely chronic kidney disease; baseline creatinine is unknown; patient is placed on slow/cautious IV fluid hydration with normal saline at rate of 75 mL an hour; we will monitor strict CAITLYN's, daily weights, renal function and electrolytes; avoid nephrotoxins and hypotension 3. Hypertension; Coreg 6.25 mg twice a day, Entresto 2426 milligrams 1 twice a day; Aldactone 25 mg twice a day 4. Hyperlipidemia; Lipitor 40 mg daily at bedtime; Zetia 10 mg daily 5. Hypothyroidism; levothyroxin 100 MCG daily 6. Diabetes mellitus 2; we will continue with home dose of Amaryl 2 mg twice a day along with Farxiga 5 mg daily 7. COPD; not in exacerbation; continue with home inhaler therapy and Atrovent nebulizer treatments 4 times a day and when necessary; Irina Gage 8. Atrial fibrillation; rate controlled on Coreg 6.25 mg twice a day; patient is on Plavix but no anticoagulation therapy 9. Coronary artery disease; continue with aspirin, Plavix, beta blockers and statin therapy DVT prophylaxis; SCDs/subcu heparin CODE STATUS; full code
--- NOTE | 2022-09-28 23:13 | P.CONS ---
History of Present Illness - Reason for Consult Consult date: 09/28/22 - History of Present Illness Patient is a 82-year-old male with a past medical history significant for diabetes mellitus hypertension hyperlipidemia coronary disease and atrial fibrillation patient presented to the hospital yesterday afternoon for evaluation of intermittent fever for the last 3 days before presentation to hospital patient also complaining of runny nose and cough the patient cough has been moderate intensity with occasional dark sputum no hemoptysis patient denies having any pleuritic chest pain patient was recently treated hospital in [place] for double pneumonia treated with Levaquin 3 weeks after the patient been diagnosed with a E. coli and Pseudomonas infection of his lungs and sinuses on the base of the culture, patient who presented to the hospital with worsening symptoms especially with weakness and already had a cough patient was brought into the hospital patient on presentation to the hospital did have a fever of 100.1 and subsequently spiked a fever of 101.7 F patient was not tachycardic mildly hypoxic requiring supplemental oxygen and borderline blood pressure patient did have a white count of 13.2 with a left shift creatinine has been normal liver enzymes are normal urine has been negative influenza RSV and COVID testing was negative patient did have a chest x-ray left basilar infiltrate compatible with pneumonia patient did receive a dose of cefepime in the ER subsequently has been admitted to hospital infectious he was consulted for further management of antibiotic therapy Past Medical History Past Medical History: Atrial Fibrillation, Coronary Artery Disease (CAD), Cancer, COPD, Diabetes Mellitus, Hyperlipidemia, Hypertension, Pneumonia, Thyroid Disorder Additional Past Medical History / Comment(s): gout, colon cancer, pulmonary fibrosis, bronchiectasis History of Any Multi-Drug Resistant Organisms: Unobtainable Past Surgical History: Bowel Resection, Heart Catheterization With Stent, Hernia Repair, Pacemaker Past Anesthesia/Blood Transfusion Reactions: No Reported Reaction Date of Last Stent Placement:: 2012 Type of Cardiac Device: Unknown Device Placement Date:: 2012 Past Psychological History: No Psychological Hx Reported Smoking Status: Former smoker Past Alcohol Use History: None Reported Past Drug Use History: None Reported Medications and Allergies Home Medications Medication Instructions Recorded Confirmed Type Atorvastatin [Lipitor] 40 mg PO HS 09/27/22 09/27/22 History Clopidogrel [Plavix] 75 mg PO DAILY 09/27/22 09/27/22 History Diclofenac Sodium Gel [Voltaren 2 gm TOPICAL QID PRN 09/27/22 09/27/22 History Gel] Empagliflozin [Jardiance] 10 mg PO DAILY 09/27/22 09/27/22 History Eplerenone 25 mg PO DAILY 09/27/22 09/27/22 History Ezetimibe [Zetia] 10 mg PO HS 09/27/22 09/27/22 History Ferrous Sulfate [Feosol] 325 mg PO DAILY 09/27/22 09/27/22 History Fluticasone Nasal [place] [Flonase 1 spray EA NOSTRIL DAILY 09/27/22 09/27/22 History Nasal [place]] Fluticasone/Umeclidin/Vilanter 1 puff INHALATION RT-DAILY 09/27/22 09/27/22 Hist ory [Trelegy Ellipta 100-62.5-25] Glimepiride [Amaryl] 2 mg PO BID 09/27/22 09/27/22 History Levothyroxine Sodium [Synthroid] 100 mcg PO DAILY 09/27/22 09/27/22 History Sacubitril/Valsartan [Entresto 24 1 tab PO BID 09/27/22 09/27/22 History mg-26 mg Tablet] allopurinoL [Zyloprim] 300 mg PO MOWEFR 09/27/22 09/27/22 History carvediloL [Coreg] 6.25 mg PO BID 09/27/22 09/27/22 History Allergies Allergy/AdvReac Type Severity Reaction Status Date / Time No Known Allergies Allergy Verified 09/27/22 18:50 Physical Exam Vitals: Vital Signs Temp Pulse Pulse Resp BP BP Pulse Ox 09/28/22 11:35 73 09/28/22 11:20 98.3 F 70 77 18 124/66 98 09/28/22 07:45 72 09/28/22 07:36 68 09/28/22 07:11 99.4 F 67 16 108/57 92 L 09/28/22 02:46 99 F 96/50 09/28/22 00:45 101.7 F H 71 16 95/47 93 L 09/27/22 22:27 98.8 F 75 18 135/68 93 L 09/27/22 22:00 16 09/27/22 21:30 99.5 F 73 18 120/68 95 09/27/22 19:28 100.9 F H 72 18 105/57 94 L 09/27/22 18:18 100.1 F H 76 15 132/66 95 09/27/22 15:19 98.5 F 82 22 128/63 94 L Intake and Output 09/27/22 09/28/22 09/28/22 22:59 06:59 14:59 Other: # Voids 1 Weight 74.843 kg Results CBC & Chem 7: 09/30/22 05:43 09/30/22 05:43 Labs: Abnormal Lab Results - Last 24 Hours (Table) 09/27/22 09/27/22 09/27/22 Range/Units 16:35 16:59 17:09 WBC 13.2 H (3.8-10.6) k/uL RBC (4.40-5.60) X 10*6/uL Hgb (13.0-17.0) d/dL Hct (39.6-50.0) % Neutrophils # 11.4 H (1.3-7.7) k/uL Lymphocytes # 0.6 L (1.0-4.8) k/uL Monocytes # (0.20-1.00) X 10*3/uL Eosinophils # (0.04-0.35) X 10*3/uL Macrocytosis (manual) Sodium 133 L (137-145) mmol/L BUN 34 H (9-20) mg/dL Creatinine 1.33 H (0.66-1.25) mg/dL Est GFR (CKD-EPI) (>=60) BUN/Creatinine Ratio (12.00-20.00) Ratio Glucose 211 H (74-99) mg/dL POC Glucose (mg/dL) (70-110) mg/dL Calcium (8.7-10.3) mg/dL Total Protein 6.2 L (6.3-8.2) g/dL Albumin 3.3 L (3.5-5.0) g/dL Urine Protein 1+ H (Negative) Urine Glucose (UA) 4+ H (Negative) Urine Mucus Rare H (None) /hpf 09/28/22 09/28/22 09/28/22 Range/Units 06:19 06:19 11:22 WBC 10.70 H (3.8-10.6) k/uL RBC 4.19 L (4.40-5.60) X 10*6/uL Hgb 12.9 L (13.0-17.0) d/dL Hct 39.5 L (39.6-50.0) % Neutrophils # 8.72 H (1.3-7.7) k/uL Lymphocytes # 0.60 L (1.0-4.8) k/uL Monocytes # 1.26 H (0.20-1.00) X 10*3/uL Eosinophils # 0.01 L (0.04-0.35) X 10*3/uL Macrocytosis (manual) 2+ A Sodium (137-145) mmol/L BUN (9-20) mg/dL Creatinine (0.66-1.25) mg/dL Est GFR (CKD-EPI) 55 L (>=60) BUN/Creatinine Ratio 20.62 H (12.00-20.00) Ratio Glucose 117 H (74-99) mg/dL POC Glucose (mg/dL) 160 H (70-110) mg/dL Calcium 8.3 L (8.7-10.3) mg/dL Total Protein (6.3-8.2) g/dL Albumin (3.5-5.0) g/dL Urine Protein (Negative) Urine Glucose (UA) (Negative) Urine Mucus (None) /hpf Assessment and Plan Plan: 1patient presented hospital with sepsis in this patient with fever elevated white count source is left lower lobe pneumonia in this patient failing outpatient oral Levaquin therapy, possible need to cover for the resistant gram- negative with the likely pathogen as there is a question of recent diagnosis of Pseudomonas pneumonia in the outpatient setting 2-we will try to obtain sputum for Gram stain and culture check a CRP and procalcitonin 3-start the patient on cefepime 2 g every 8 hours while waiting for the culture to finalize We will follow on clinical condition and cultures to further adjust medication if needed Thank you for this consultation we will follow the patient along with you Dictation was produced using [employer] dictation software. please excuse any grammatical, word or spelling errors. Time with Patient: Greater than 30
[2022-09-29] MEDS: CEFEPIME 2 GM in SODIUM CHLORIDE 0.9% 100 ML IVPB SCH ×2 (04:00→16:20)
[2022-09-29] MEDS: LEVOTHYROXINE 100 MCG TAB PO SCH (06:40)
[2022-09-29 07:05] LABS: Glucose,Whole Blood 118 mg/dL (70-110)
[2022-09-29] MEDS: IPRATROPIUM 0.5 MG/2.5 ML NEBU INHALATION SCH ×4 (07:45→20:34)
[2022-09-29] MEDS: SYMBICORT 80-4.5 MCG INHALER INHALATION SCH ×2 (07:45→20:33)
[2022-09-29] MEDS: INSULIN ASPART (NovoLOG) 100 UNIT/ML VIAL SQ SCH ×4 (07:51→20:46)
[2022-09-29] MEDS: allopurinoL 300 MG TAB PO SCH (07:53)
[2022-09-29] MEDS: FERROUS SULFATE 325 MG TAB PO SCH (07:53)
[2022-09-29] MEDS: SPIRONOLACTONE 25 MG TAB PO SCH ×2 (07:53→20:46)
[2022-09-29] MEDS: DAPAGLIFLOZIN PROPANEDIOL 5 MG TABLET PO SCH (07:53)
[2022-09-29] MEDS: CLOPIDOGREL 75 MG TAB PO SCH (07:53)
[2022-09-29] MEDS: SACUBITRIL/VALSARTAN 24 MG-26 MG TABLET PO SCH ×2 (07:53→20:46)
[2022-09-29] MEDS: FLUTICASONE 50MCG/SPRAY NASAL 16GM EA NOSTRIL SCH (07:54)
[2022-09-29] MEDS: carvediloL 6.25 MG TAB PO SCH ×2 (07:54→17:32)
[2022-09-29] MEDS: GLIMEPIRIDE 2 MG TAB PO SCH ×2 (07:54→20:46)
[2022-09-29 08:46] LABS: ALT 28 U/L (10-49); AST 37 U/L (14-35); Albumin 2.8 d/dL (3.8-4.9); Albumin/Globulin Ratio 1.27 Ratio (1.60-3.17); Alkaline Phosphatase 60 U/L (41-126); BUN/Creat Ratio 23.43 Ratio (12.00-20.00); Blood Urea Nitrogen 32.8 mg/dL (9.0-27.0); Calcium 8.2 mg/dL (8.7-10.3); Carbon Dioxide 22.7 mmol/L (21.6-31.8); Chloride 101 mmol/L (96-109); Globulin 2.2 d/dL (1.6-3.3); Glucose 129 mg/dL (70-110); Potassium 4.2 mmol/L (3.5-5.5); Sodium 136 mmol/L (135-145); Total Bilirubin 0.8 mg/dL (0.3-1.2)
[2022-09-29 08:49] LABS: Basophils # (A) 0.03 X 10*3/uL (0.00-0.10); Basophils % (A) 0.2 %; Eosinophils # (A) 0.03 X 10*3/uL (0.04-0.35); Eosinophils % (A) 0.2 %; HCT 41.2 % (39.6-50.0); HGB 13.6 d/dL (13.0-17.0); Lymphocytes # (A) 0.94 X 10*3/uL (0.90-5.00); Lymphocytes % (A) 6.8 %; MCH 30.4 pg (27.0-32.0); MCV 92.2 FL (80.0-97.0); Mean Platelet Volume 10.5 FL (9.5-12.2); Monocytes # (A) 1.49 X 10*3/uL (0.20-1.00); Monocytes % (A) 10.8 %; NRBC Per 100 WBC 0 X 10*3/uL (0.00-0.01); Neutrophils # (A) 11.23 X 10*3/uL (1.80-7.70); Neutrophils % (A) 81.5 %; Platelet Count 232 X 10*3/uL (140-440); RBC 4.47 X 10*6/uL (4.40-5.60); RDW 14.4 % (11.5-14.5); WBC 13.79 X 10*3/uL (4.50-10.00)
[2022-09-29 11:54] LABS: Glucose,Whole Blood 232 mg/dL (70-110)
[2022-09-29] MEDS: ACETAMINOPHEN TAB 325 MG TAB PO PRN ×2 (12:15→21:12)
--- NOTE | 2022-09-29 13:22 | CT ---
EXAMINATION TYPE: CT chest wo con DATE OF EXAM: 09/29/2022 COMPARISON: None HISTORY: cough, mass, pneumonia CT DLP: 280.7 mGycm, Automated exposure control for dose reduction was used. CONTRAST: Performed injected with 0 mL of Isovue 300. TECHNIQUE: Axial images were obtained at 5 mm thick sections. Reconstructed images are reviewed on [employer] computer in the coronal plane. FINDINGS: Portion of the thyroid visualized is normal. Small bilateral pleural effusions are present. Posterior inferior consolidations are present. There i s some consolidation in the posterior right upper lobe along the major fissure. Patchy nodular densit ies appear to be within the right middle lobe and include a 3.2 cm area anterior mediastinal border, series 4 image 38 and a density within the right perihilar region 0.2 cm. Series 4 image 33. Couple n odules may be in the posterior left lung base including 1.0 cm nodule, series 4 image 46. 2.7 cm supe rior segment right lower lobe, series 4 image 39. Shotty lymphadenopathy is seen in the mediastinum. There is a 1.2 cm lymph node in the pretracheal s pace. Some additional borderline prominent lymphadenopathy is present. Obvious hilar adenopathy is no t identified, however evaluation maybe somewhat limited due to lack of intravenous contrast. The asce nding aorta diameter at the level of the main pulmonary artery is 3.4 cm. The main pulmonary artery diameter at the bifurcation is 2.7 cm. Moderate coronary artery calcifications present. Mild pericard ial effusion is present. Limited CT sections are obtained through the upper abdomen. Abdomen is essentially unremarkable. IMPRESSIONS: 1. Areas of consolidation present bilaterally in the lower lung capone. Correlate for pneumonia. Unde rlying masses should be considered within the differential. 2. There are additional areas more suspicious for underlying soft tissue masses within the mid lungs bilaterally. These however are nonspecific and infection could be considered within the differential. 3. Small bilateral pleural effusions. 4. Mild pericardial effusion. 5. Large pretracheal lymph node with additional shotty lymphadenopathy.
[2022-09-29] MEDS ORDERED: FUROSEMIDE 10 MG/ML 4 ML VIAL IV STA (16:01)
--- NOTE | 2022-09-29 16:01 | P.CNPUL ---
History of Present Illness Consult date: 09/29/22 Requesting physician: Alicia Sun Reason for consult: dyspnea, hypoxemia, abnormal CXR/CT Chief complaint: Shortness of breath, cough, congestion History of present illness: This is a very pleasant 82-year-old male patient who resides in [place] and is here visiting. He has a history of atrial fibrillation, coronary artery disease with previous stent placement, chronic obstructive pulmonary disease, former smoker, diabetes mellitus, hypertension, hyperlipidemia, hypothyroidism, pacemaker implantation. He also had been recently treated while in [place] for E. coli and Pseudomonas of the sinuses and lung infections with 3 weeks of Levaquin. Since his been here 3-4 days he had developed fever cough congestion was seen in urgent care and then subsequently here at the emergency room 06/2022. Asked x-ray revealed a left basilar infiltrate. Blood cultures are pending. White count 13.7. Hemoglobin 13.6. Platelets 232. D-dimer 8.76. Sodium 136. Potassium 4.2. BUN 32. Creatinine 1.4. Bicarb 23. Glucose 232. C-reactive protein 36.3. Pro-calcitonin 1.43. He is currently on cefepime. He is seen today in consultation on the regular medical floor. He is resting fairly comfortably in bed. Awake and alert in no acute distress. Maintaining O2 saturations in the 90s on 4 L nasal cannula. He is febrile. He had a T-max of 102.7. Currently 99.9. Review of Systems REVIEW OF SYSTEMS: CONSTITUTIONAL: Denies any recent significant weight loss or weight gain. EYES: Denies change in vision. EARS, NOSE, MOUTH, THROAT: Denies headaches, denies sore throat. CARDIOVASCULAR: Denies chest pain, palpitations or syncopal episodes. RESPIRATORY: Positive for shortness of breath, cough, congestion, no hemoptysis. GASTROINTESTINAL: Denies change in appetite, denies abdominal pain GENITOURINARY: Denies hematuria, denies infections. MUSKULOSKELETAL: Denies pain, denies swelling. INTEGUMENTARY: Denies rash, denies eczema. NEUROLOGICAL: Denies recent memory loss, no recent seizure activity. PSYCHIATRIC: Denies anxiety, denies depression. HEMATOLOGIC/LYMPHATIC: Denies anemia, denies enlarged lymph nodes. Past Medical History Past Medical History: Atrial Fibrillation, Coronary Artery Disease (CAD), Cance r, COPD, Diabetes Mellitus, Hyperlipidemia, Hypertension, Pneumonia, Thyroid Disorder Additional Past Medical History / Comment(s): gout, colon cancer, pulmonary fibrosis, bronchiectasis History of Any Multi-Drug Resistant Organisms: Unobtainable Past Surgical History: Bowel Resection, Heart Catheterization With Stent, Hernia Repair, Pacemaker Past Anesthesia/Blood Transfusion Reactions: No Reported Reaction Date of Last Stent Placement:: 2012 Type of Cardiac Device: Unknown Device Placement Date:: 2012 Past Psychological History: No Psychological Hx Reported Smoking Status: Former smoker Past Alcohol Use History: None Reported Past Drug Use History: None Reported Medications and Allergies Home Medications Medication Instructions Recorded Confirmed Type Atorvastatin [Lipitor] 40 mg PO HS 09/27/22 09/27/22 History Clopidogrel [Plavix] 75 mg PO DAILY 09/27/22 09/27/22 History Diclofenac Sodium Gel [Voltaren 2 gm TOPICAL QID PRN 09/27/22 09/27/22 History Gel] Empagliflozin [Jardiance] 10 mg PO DAILY 09/27/22 09/27/22 History Eplerenone 25 mg PO DAILY 09/27/22 09/27/22 History Ezetimibe [Zetia] 10 mg PO HS 09/27/22 09/27/22 History Ferrous Sulfate [Feosol] 325 mg PO DAILY 09/27/22 09/27/22 History Fluticasone Nasal Points [Flonase 1 spray EA NOSTRIL DAILY 09/27/22 09/27/22 History Nasal Points] Fluticasone/Umeclidin/Vilanter 1 puff INHALATION RT-DAILY 09/27/22 09/27/22 History [Trelegy Ellipta 100-62.5-25] Glimepiride [Amaryl] 2 mg PO BID 09/27/22 09/27/22 History Levothyroxine Sodium [Synthroid] 100 mcg PO DAILY 09/27/22 09/27/22 History Sacubitril/Valsartan [Entresto 24 1 tab PO BID 09/27/22 09/27/22 History mg-26 mg Tablet] allopurinoL [Zyloprim] 300 mg PO MOWEFR 09/27/22 09/27/22 History carvediloL [Coreg] 6.25 mg PO BID 09/27/22 09/27/22 History Allergies Allergy/AdvReac Type Severity Reaction Status Date / Time No Known Allergies Allergy Verified 09/27/22 18:50 Physical Exam Vitals: Vital Signs Temp Pulse Pulse Resp BP BP Pulse Ox 09/29/22 15:19 72 09/29/22 15:08 72 09/29/22 11:52 99.9 F H 70 96 18 108/52 92 L 09/29/22 11:44 70 09/29/22 08:01 78 09/29/22 07:50 78 90 L 09/29/22 07:02 99 F 65 18 108/59 92 L 09/29/22 01:11 98.5 F 60 96/53 94 L 09/28/22 22:47 72 09/28/22 22:34 70 09/28/22 21:15 99.9 F H 09/28/22 19:16 102.7 F H 85 20 93/50 97 09/28/22 18:12 90 L Intake and Output 09/29/22 09/29/22 09/29/22 06:59 14:59 22:59 Other: # Voids 1 1 GENERAL EXAM: Alert, very pleasant 82-year-old male, on 4 L nasal cannula, fairly comfortable in no apparent distress. HEAD: Normocephalic. EYES: Normal reaction of pupils, equal size. NOSE: Clear with pink turbinates. THROAT: No erythema or exudates. NECK: No masses, no JVD. CHEST: No chest wall deformity. Pacemaker, left chest. LUNGS: Equal air entry with bilateral scattered rhonchi. CVS: S1 and S2 normal with no audible murmur, regular rhythm. ABDOMEN: No hepatosplenomegaly, normal bowel sounds, no guarding or rigidity. SPINE: No scoliosis or deformity SKIN: No rashes CENTRAL NERVOUS SYSTEM: No focal deficits, tone is normal in all 4 extremities. EXTREMITIES: There is no peripheral edema. No clubbing, no cyanosis. Peripheral pulses are intact. Results - Laboratory Findings CBC and BMP: 09/29/22 05:42 09/29/22 05:42 PT/INR, D-dimer PT 10.0 sec (9.0-12.0) 09/27/22 16:59 INR 0.9 (<1.2) 09/27/22 16:59 D-Dimer 8.76 mg/L FEU (<0.60) H 09/29/22 11:41 Abnormal lab findings: Abnormal Labs 09/27/22 09/27/22 09/27/22 16:35 16:59 17:09 WBC 13.2 H RBC Hgb Hct Neutrophils # 11.4 H Lymphocytes # 0.6 L Monocytes # Eosinophils # Macrocytosis (manual) D-Dimer Sodium 133 L Anion Gap BUN 34 H Creatinine 1.33 H Est GFR (CKD-EPI) BUN/Creatinine Ratio Glucose 211 H POC Glucose (mg/dL) Hemoglobin A1c Calcium AST C-Reactive Protein Total Protein 6.2 L Albumin 3.3 L Albumin/Globulin Ratio Procalcitonin Urine Protein 1+ H Urine Glucose (UA) 4+ H Urine Mucus Rare H 09/28/22 09/28/22 09/28/22 06:19 06:19 11:22 WBC 10.70 H RBC 4.19 L Hgb 12.9 L Hct 39.5 L Neutrophils # 8.72 H Lymphocytes # 0.60 L Monocytes # 1.26 H Eosinophils # 0.01 L Macrocytosis (manual) 2+ A D-Dimer Sodium Anion Gap BUN Creatinine Est GFR (CKD-EPI) 55 L BUN/Creatinine Ratio 20.62 H Glucose 117 H POC Glucose (mg/dL) 160 H Hemoglobin A1c Calcium 8.3 L AST C-Reactive Protein Total Protein Albumin Albumin/Globulin Ratio Procalcitonin Urine Protein Urine Glucose (UA) Urine Mucus 09/28/22 09/28/22 09/29/22 17:25 20:05 05:42 WBC RBC Hgb Hct Neutrophils # Lymphocytes # Monocytes # Eosinophils # Macrocytosis (manual) D-Dimer Sodium Anion Gap BUN Creatinine Est GFR (CKD-EPI) BUN/Creatinine Ratio Glucose POC Glucose (mg/dL) 187 H 308 H Hemoglobin A1c Calcium AST C-Reactive Protein Total Protein Albumin Albumin/Globulin Ratio Procalcitonin 1.43 H Urine Protein Urine Glucose (UA) Urine Mucus 09/29/22 09/29/22 09/29/22 05:42 05:42 05:42 WBC 13.79 H RBC Hgb Hct Neutrophils # 11.23 H Lymphocytes # Monocytes # 1.49 H Eosinophils # 0.03 L Macrocytosis (manual) D-Dimer Sodium Anion Gap 12.30 H BUN 32.8 H Creatinine Est GFR (CKD-EPI) 50 L BUN/Creatinine Ratio 23.43 H Glucose 129 H POC Glucose (mg/dL) Hemoglobin A1c 9.7 H Calcium 8.2 L AST 37 H C-Reactive Protein 36.30 H Total Protein 5.0 L Albumin 2.8 L Albumin/Globulin Ratio 1.27 L Procalcitonin Urine Protein Urine Glucose (UA) Urine Mucus 09/29/22 09/29/22 09/29/22 07:04 11:41 11:53 WBC RBC Hgb Hct Neutrophils # Lymphocytes # Monocytes # Eosinophils # Macrocytosis (manual) D-Dimer 8.76 H Sodium Anion Gap BUN Creatinine Est GFR (CKD-EPI) BUN/Creatinine Ratio Glucose POC Glucose (mg/dL) 118 H 232 H Hemoglobin A1c Calcium AST C-Reactive Protein Total Protein Albumin Albumin/Globulin Ratio Procalcitonin Urine Protein Urine Glucose (UA) Urine Mucus - Diagnostic Findings Chest x-ray: image reviewed CT scan - chest: image reviewed Assessment and Plan Assessment: Acute hypoxemic respiratory failure secondary to community-acquired pneumonia and underlying suspected systolic versus diastolic congestive heart failure Recent history of pneumonia secondary to E. coli and Pseudomonas and treated with 3 weeks of Levaquin in the outpatient setting Coronary artery disease with previous stent placement History of congestive heart failure Hypertension Hyperlipidemia Chronic obstructive pulmonary disease Former smoker Hypothyroidism Diabetes mellitus, type II Plan: The patient was seen and evaluated Chest x-ray, computed tomography scan of the chest, labs and medications reviewed Continue cefepime, bronchodilators Check a pro BNP Check a pro-calcitonin Add Lasix 40 mg IVP 1 Follow-up chest x-ray in the a.m. Titrate the FiO2 as tolerated We will continue to follow and make further recommendations based on his clinical status I have personally seen and examined the patient, performed the documentation and the assessment and plan as written. Number of minutes spent on the visit: 20.
[2022-09-29 17:17] LABS: Glucose,Whole Blood 257 mg/dL (70-110)
[2022-09-29 19:37] LABS: Glucose,Whole Blood 270 mg/dL (70-110)
[2022-09-29] MEDS: guaiFENesin SYRUP 100MG/5ML 200 MG/10 ML CUP PO PRN (20:46)
[2022-09-29] MEDS: EZETIMIBE 10 MG TAB PO SCH (20:46)
[2022-09-29] MEDS: ATORVASTATIN 40 MG TAB PO SCH (20:46)
[2022-09-30] MEDS: CEFEPIME 2 GM in SODIUM CHLORIDE 0.9% 100 ML IVPB SCH ×2 (04:09→15:35)
--- NOTE | 2022-09-30 05:59 | PN ---
PROGRESS NOTE DATE OF SERVICE: 09/29/2022 SUBJECTIVE: This is an 82-year-old gentleman who was admitted with left basilar pneumonia with failure of outpatient treatment, is being closely monitored. The patient apparently had recent Pseudomonas and E coli infection. The patient was taking levofloxacin for that according to the patient's . PAST MEDICAL HISTORY: Reviewed. REVIEW OF SYSTEMS: A 14-point review is negative except as mentioned earlier. CURRENT MEDICATIONS: Reviewed include Symbicort. Dose and rest of medications noted. PHYSICAL EXAMINATION: VITAL SIGNS: Pulse is 65, blood pressure 108/50, respirations 18. HEENT: Conjunctivae normal. NECK: No jugular venous distention. CARDIOVASCULAR: S1 and S2. RESPIRATIONS: Breath sounds diminished at the bases. A few scattered rhonchi and crackles. ABDOMEN: Soft. NERVOUS SYSTEM: No focal deficits. LABORATORY DATA: Reviewed. ASSESSMENT: 1. Acute left basilar pneumonia with failure of outpatient treatment. 2. History of recent Pseudomonas and Escherichia coli infection. 3. Acute kidney injury. 4. Hypertension. 5. Hyperlipidemia. 6. Multiple medical issues. RECOMMENDATIONS: Recommend to continue current medication, continue symptomatic treatment. I would recommend viral testing to complete the workup as well as a D-dimer. If D-dimer is elevated, CT angio of the chest may be ordered. We will continue to monitor. Guarded prognosis. Further recommendations to follow. MMODL / IJN: [id number] /
[2022-09-30] MEDS: LEVOTHYROXINE 100 MCG TAB PO SCH (06:07)
[2022-09-30 07:04] LABS: Glucose,Whole Blood 133 mg/dL (70-110)
[2022-09-30] MEDS: INSULIN ASPART (NovoLOG) 100 UNIT/ML VIAL SQ SCH ×4 (07:10→20:45)
[2022-09-30] MEDS: IPRATROPIUM 0.5 MG/2.5 ML NEBU INHALATION SCH ×4 (07:42→20:47)
[2022-09-30] MEDS: SYMBICORT 80-4.5 MCG INHALER INHALATION SCH ×2 (07:42→20:47)
[2022-09-30] MEDS: DAPAGLIFLOZIN PROPANEDIOL 5 MG TABLET PO SCH (08:01)
[2022-09-30] MEDS: FLUTICASONE 50MCG/SPRAY NASAL 16GM EA NOSTRIL SCH (08:01)
[2022-09-30] MEDS: carvediloL 6.25 MG TAB PO SCH ×2 (08:01→17:44)
[2022-09-30] MEDS: CLOPIDOGREL 75 MG TAB PO SCH (08:01)
[2022-09-30] MEDS: FERROUS SULFATE 325 MG TAB PO SCH (08:01)
[2022-09-30] MEDS: SPIRONOLACTONE 25 MG TAB PO SCH ×2 (08:03→20:45)
[2022-09-30] MEDS: SACUBITRIL/VALSARTAN 24 MG-26 MG TABLET PO SCH ×2 (08:03→20:46)
[2022-09-30] MEDS: GLIMEPIRIDE 2 MG TAB PO SCH ×2 (08:03→20:45)
--- NOTE | 2022-09-30 08:51 | XR ---
EXAMINATION TYPE: XR chest 1V portable DATE OF EXAM: 09/30/2022 8:09 AM COMPARISON: Chest radiographs from 09/27/2022. TECHNIQUE: XR chest 1V portable Frontal view of the chest. CLINICAL INDICATION:Male, 82 years old with history of CHF, pneumonia; FINDINGS: Lungs/Pleura: Bibasilar airspace opacities are new. No evidence of focal consolidation or pneumothora x. Blunting of the costophrenic angles is present. Pulmonary vascularity: Unremarkable. Heart/mediastinum: Cardiomediastinal silhouette is unremarkable. Single-lead cardiac conduction devic e overlying the left hemithorax, one of the leads over the superior vena cava appears to be in malpos ition. Musculoskeletal: No acute osseous pathology. IMPRESSION: Bibasilar airspace opacities with trace pleural effusions correlate for congestive heart failure vers us pneumonia. At least one of the cardiac conduction leads appears to be at high position. The superior vena cava.
[2022-09-30 10:53] LABS: BUN/Creat Ratio 26.53 Ratio (12.00-20.00); Blood Urea Nitrogen 39.8 mg/dL (9.0-27.0); Chloride 102 mmol/L (96-109); Glucose 140 mg/dL (70-110); Potassium 3.6 mmol/L (3.5-5.5); Sodium 136 mmol/L (135-145)
[2022-09-30 10:54] LABS: Calcium 7.8 mg/dL (8.7-10.3); Carbon Dioxide 22.3 mmol/L (21.6-31.8)
[2022-09-30 10:59] LABS: Basophils # (A) 0.02 X 10*3/uL (0.00-0.10); Basophils % (A) 0.2 %; Eosinophils # (A) 0.05 X 10*3/uL (0.04-0.35); Eosinophils % (A) 0.5 %; HCT 36.2 % (39.6-50.0); HGB 12.3 d/dL (13.0-17.0); Lymphocytes # (A) 0.86 X 10*3/uL (0.90-5.00); Lymphocytes % (A) 7.9 %; MCH 31.1 pg (27.0-32.0); MCV 91.6 FL (80.0-97.0); Mean Platelet Volume 10.3 FL (9.5-12.2); Monocytes # (A) 1.37 X 10*3/uL (0.20-1.00); Monocytes % (A) 12.6 %; NRBC Per 100 WBC 0 X 10*3/uL (0.00-0.01); Neutrophils # (A) 8.47 X 10*3/uL (1.80-7.70); Platelet Count 233 X 10*3/uL (140-440); RBC 3.95 X 10*6/uL (4.40-5.60); RDW 14.3 % (11.5-14.5); WBC 10.86 X 10*3/uL (4.50-10.00)
[2022-09-30] MEDS ORDERED: FUROSEMIDE 10 MG/ML 4 ML VIAL IV STA (10:59)
--- NOTE | 2022-09-30 11:01 | P.PN ---
Subjective Progress Note Date: 09/30/22 This is a very pleasant 82-year-old male patient who resides in [place] and is here visiting. He has a history of atrial fibrillation, coronary artery disease with previous stent placement, chronic obstructive pulmonary disease, former smoker, diabetes mellitus, hypertension, hyperlipidemia, hypothyroidism, pacemaker implantation. He also had been recently treated while in [place] for E. coli and Pseudomonas of the sinuses and lung infections with 3 weeks of Levaquin. Since his been here 3-4 days he had developed fever cough congestion was seen in urgent care and then subsequently here at the emergency room 09/27/2022. Asked x-ray revealed a left basilar infiltrate. Blood cultures are pending. White count 13.7. Hemoglobin 13.6. Platelets 232. D-dimer 8.76. Sodium 136. Potassium 4.2. BUN 32. Creatinine 1.4. Bicarb 23. Glucose 232. C-reactive protein 36.3. Pro-calcitonin 1.43. He is currently on cefepime. He is seen today in consultation on the regular medical floor. He is resting fairly comfortably in bed. Awake and alert in no acute distress. Maintaining O2 saturations in the 90s on 4 L nasal cannula. He is febrile. He had a T-max of 102.7. Currently 99.9. The patient is seen today 09/30/2022 in follow-up on the regular medical floor. He is currently resting comfortably in bed. Awake and alert in no acute distress. Reason a bit easier today compared to yesterday. Less cough and congestion. Maintaining O2 saturations in the 90s on 4 L/m per nasal cannula. His proBNP was 12,600. Pro-calcitonin was 1.43. Computed tomography scan revealed areas of consolidation bilaterally in the lower lung capone. Small bilateral pleural effusions. Mild pericardial effusion. Chest x-ray reveals bibasilar airspace opacities with trace pleural effusions. He is given Lasix 40 mg IVP 1 yesterday. He is continued on antibiotics in the form of cefepime. Continued on bronchodilators. Sodium 136. Potassium 3.6. Bicarb 22. BUN 40. Creatinine 1.5. Glucose 140. Objective - Vital Signs Vital signs: Vital Signs Temp 98.5 F 09/30/22 07:02 Pulse 76 09/30/22 07:57 Resp 18 09/30/22 07:02 BP 102/48 09/30/22 07:02 Pulse Ox 98 09/30/22 01:07 FiO2 Intake & Output 09/29/22 09/30/22 09/30/22 18:59 06:59 18:59 Intake Total 200 Output Total 300 Balance -100 Intake: Intake, IV Titration 200 Amount Cefepime 2 gm In Sodium 200 Chloride 0.9% 100 ml @ 25 mls/hr IVPB Q12H [facility] Rx# :[id number] Output: Urine 300 Other: Voiding Method Toilet Urinal # Voids 1 2 - Exam GENERAL EXAM: Alert, 82-year-old male, on 4 L nasal cannula, fairly comfortable in no apparent distress. HEAD: Normocephalic. EYES: Normal reaction of pupils, equal size. NOSE: Clear with pink turbinates. THROAT: No erythema or exudates. NECK: No masses, no JVD. CHEST: No chest wall deformity. Pacemaker, left chest. LUNGS: Equal air entry with bilateral scattered rhonchi, crackles in the posterior bases. CVS: S1 and S2 normal with no audible murmur, regular rhythm. ABDOMEN: No hepatosplenomegaly, normal bowel sounds, no guarding or rigidity. SPINE: No scoliosis or deformity SKIN: No rashes CENTRAL NERVOUS SYSTEM: No focal deficits, tone is normal in all 4 extremities. EXTREMITIES: There is no peripheral edema. No clubbing, no cyanosis. Peripheral pulses are intact. - Labs CBC & Chem 7: 09/29/22 05:42 09/29/22 05:42 Labs: Abnormal Lab Results - Last 24 Hours (Table) 09/29/22 09/29/22 09/29/22 Range/Units 11:41 11:53 17:16 D-Dimer 8.76 H (<0.60) mg/L FEU POC Glucose (mg/dL) 232 H 257 H (70-110) mg/dL 09/29/22 09/30/22 Range/Units 19:36 07:03 D-Dimer (<0.60) mg/L FEU POC Glucose (mg/dL) 270 H 133 H (70-110) mg/dL Microbiology - Last 24 Hours (Table) 09/27/22 16:59 Blood Culture - Preliminary Blood 09/27/22 16:59 Blood Culture - Preliminary Blood 09/29/22 08:10 Gram Stain - Preliminary Sputum Assessment and Plan Assessment: Acute hypoxemic respiratory failure secondary to community-acquired pneumonia and underlying suspected systolic versus diastolic congestive heart failure. ProBNP 12,600. Pro-calcitonin 1.43. Recent history of pneumonia secondary to E. coli and Pseudomonas and treated with 3 weeks of Levaquin in the outpatient setting Coronary artery disease with previous stent placement History of congestive heart failure Hypertension Hyperlipidemia Chronic obstructive pulmonary disease Former smoker Hypothyroidism Diabetes mellitus, type II Plan: The patient was seen and evaluated Chest x-ray, labs and medications reviewed Continue cefepime, bronchodilators Give Lasix 40 mg IVP 1 Titrate the FiO2 as tolerated We will continue to follow I have personally seen and examined the patient, performed the documentation and the assessment and plan as written. Number of minutes spent on the visit: 10.
[2022-09-30 11:53] LABS: Glucose,Whole Blood 236 mg/dL (70-110)
--- NOTE | 2022-09-30 15:30 | P.PN ---
Subjective Progress Note Date: 09/30/22 This is a pleasant 82-year-old male who was recently admitted with left basilar pneumonia with failure of outpatient treatment being closely monitored with pulmonary along with infectious disease following. Patient has had failure of outpatient treatment for recent Pseudomonas with E. coli infection and was maintained on Levaquin in the outpatient setting. Patient continues to be short of breath requiring oxygen and does not normally wear oxygen in the outpatient setting. Chest x-ray shows bibasilar airspace opacities with a trace of pleural effusions to correlate for CHF versus pneumonia. Patient was started on IV Lasix and given an additional dose last night and today per pulmonary. Patient also continues on Symbicort inhaler. Cultures are pending and sputum culture showing many gram-negative bacilli with some gram-positive cocci and awaiting culture finalization. Patient is continued on cefepime with infectious disease following. Patient is currently afebrile continues to report shortness of breath and a cough, denies chest pain, nausea, or vomiting. Encouraged increase activity as tolerated as well. Review of systems: Constitutional: reports of fatigue, no fever, or chills Cardiovascular: No reports of chest pain or palpitations Respiratory: reports of continued shortness of breath and cough GI: No reports of nausea, no reports of vomiting, no diarrhea : No reports of dysuria or retention Neurovascular: reports of generalized weakness, All medications have been reviewed Active Medications Acetaminophen (Acetaminophen Tab 325 Mg Tab) 650 mg PO Q6HR PRN PRN Reason: Mild Pain or Fever > 100.5 Last Admin: 09/29/22 21:12 Dose: 650 mg Allopurinol (Allopurinol 300 Mg Tab) 300 mg PO MOWEFR [facility] Last Admin: 09/29/22 07:53 Dose: 300 mg Atorvastatin Calcium (Atorvastatin 40 Mg Tab) 40 mg PO HS [facility] Last Admin: 09/29/22 20:46 Dose: 40 mg Budesonide/Formoterol Fumarate (Symbicort 80-4.5 Mcg Inhaler) 2 puff INHALATION RT-BID [facility] Last Admin: 09/30/22 07:42 Dose: 2 puff Carvedilol (Carvedilol 6.25 Mg Tab) 6.25 mg PO BID-W/MEALS [facility] Last Admin: 09/30/22 08:01 Dose: 6.25 mg Clopidogrel Bisulfate (Clopidogrel 75 Mg Tab) 75 mg PO DAILY [facility] Last Admin: 09/30/22 08:01 Dose: 75 mg Dapagliflozin (Dapagliflozin Propanediol 5 Mg Tablet) 5 mg PO DAILY [facility] Last Admin: 09/30/22 08:01 Dose: 5 mg Dextrose/Water (Dextrose 50% Syringe 50 Ml) 25 ml IVP PER PROTOCOL PRN; Protocol PRN Reason: Hypoglycemia Dextrose/Water (Dextrose 50% Syringe 50 Ml) 50 ml IVP PER PROTOCOL PRN; Protocol PRN Reason: Hypoglycemia Ezetimibe (Ezetimibe 10 Mg Tab) 10 mg PO HS [facility] Last Admin: 09/29/22 20:46 Dose: 10 mg Ferrous Sulfate (Ferrous Sulfate 325 Mg Tab) 325 mg PO DAILY [facility] Last Admin: 09/30/22 08:01 Dose: 325 mg Fluticasone Propionate (Fluticasone 50mcg/Bern Nasal 16gm) 1 spray EA NOSTRIL DAILY [facility] Last Admin: 09/30/22 08:01 Dose: 1 spray Furosemide (Furosemide 10 Mg/Ml 4 Ml Vial) 40 mg IV Q12HR [facility] Glimepiride (Glimepiride 2 Mg Tab) 2 mg PO BID [facility] Last Admin: 09/30/22 08:03 Dose: 2 mg Guaifenesin (Guaifenesin Syrup 100mg/5ml 200 Mg/10 Ml Cup) 200 mg PO Q6HR PRN PRN Reason: Cough Last Admin: 09/29/22 20:46 Dose: 200 mg Cefepime HCl 2 gm/ Sodium (Chloride) 100 mls @ 25 mls/hr IVPB Q12H [facility]; Protocol Last Admin: 09/30/22 04:09 Dose: 25 mls/hr Insulin Aspart (Insulin Aspart (Novolog) 100 Unit/Ml Vial) 0 unit SQ ACHS [facility]; Protocol Last Admin: 09/30/22 12:47 Dose: 4 unit Ipratropium [place] (Ipratropium 0.5 Mg/2.5 Ml Nebu) 0.5 mg INHALATION RT-QID [facility] Last Admin: 09/30/22 15:15 Dose: 0.5 mg Levothyroxine Sodium (Levothyroxine 100 Mcg Tab) 100 mcg PO 0630 [facility] Last Admin: 09/30/22 06:07 Dose: 100 mcg Naloxone HCl (Naloxone 0.4 Mg/Ml 1 Ml Vial) 0.2 mg IV Q2M PRN PRN Reason: Opioid Reversal Sacubitril/Valsartan (Sacubitril/Valsartan 24 Mg-26 Mg Tablet) 1 each PO BID [facility] Last Admin: 09/30/22 08:03 Dose: 1 each Spironolactone (Spironolactone 25 Mg Tab) 25 mg PO BID [facility] Last Admin: 09/30/22 08:03 Dose: 25 mg PHYSICAL EXAMINATION: GENERAL: The patient is alert and oriented x4, Well developed, well nourished. HEENT: Pupils are round and equally reacting to light. EOMI. no scleral icterus. No conjunctival pallor. Normocephalic, atraumatic. No pharyngeal erythema. No thyromegaly. CARDIOVASCULAR: S1 and S2 muffled PULMONARY: diminished breath sounds bilaterally with no wheezing or rhonchi noted. ABDOMEN: soft. Nontender on exam. obese. non-distended, normoactive bowel sounds. No palpable organomegaly. MUSCULOSKELETAL: No joint swelling or deformity. EXTREMITIES: No cyanosis, clubbing, or pedal edema. NEUROLOGICAL: Gross neurological examination did not reveal any focal deficits. Diffuse weakness SKIN: No rashes. Assessment: Acute left basilar pneumonia with failure of outpatient treatment Chronic obstructive pulmonary disease history History of recent Pseudomonas and E. coli infection History of congestive heart failure, acute on chronic exacerbation with unknown EF History of pulmonary fibrosis History of atrial fibrillation, currently rate controlled Acute kidney injury Coronary artery disease history with stenting History of diabetes mellitus, type II, [id number] Hypertension Hyperlipidemia GI prophylaxis DVT prophylaxis Full code Plan: Patient being followed by pulmonary along with infectious disease for basilar pneumonia, likely community-acquired. at the bedside reports he was recently treated with Levaquin for a few weeks in the outpatient setting for Pseudomonas and E. coli in the sputum Patient currently maintained on 4 L via nasal cannula and recommend wean FiO2 as tolerated patient being started on IV Lasix twice daily with an elevated BNP, multifactorial with a possible CHF exacerbation. Unknown EF Encouraged oral intake and increased activity as tolerated Patient is continued on IV cefepime with infectious disease following and awaiting sputum cultures will continue with Accu-Cheks before meals and at bedtime and continue sliding scale for now Will discuss further with consultations following as patient is showing some signs of improvement and discuss possible discharge planning in the next 24-48 hours. Due to multiple complex medical issues, prognosis is guarded The impression and plan of care has been dictated by Porsche Gutierrez, nurse practitioner as directed. Dr. Dino MD I have performed a history and examination and MDM of this patient, discussed the same with the dictator, and agree with the dictator's assessment and plan as written ,documented as a scribe. Based on total visit time, I have performed more than 50% of the visit. Any additional findings or plans will be noted. Objective - Vital Signs Vital signs: Vital Signs Temp 98.6 F 09/30/22 11:50 Pulse 62 09/30/22 11:50 Resp 18 09/30/22 11:50 BP 100/57 09/30/22 11:50 Pulse Ox 91 L 09/30/22 11:50 FiO2 Intake & Output 09/29/22 09/30/22 09/30/22 18:59 06:59 18:59 Intake Total 200 Output Total 300 225 Balance -100 -225 Weight 74.843 kg Intake: Intake, IV Titration 200 Amount Cefepime 2 gm In Sodium 200 Chloride 0.9% 100 ml @ 25 mls/hr IVPB Q12H [facility] Rx# :[id number] Output: Urine 300 225 Other: Voiding Method Toilet Urinal # Voids 1 2 - Labs CBC & Chem 7: 09/30/22 05:43 09/30/22 05:43 Labs: Abnormal Lab Results - Last 24 Hours (Table) 09/29/22 09/29/22 09/30/22 Range/Units 17:16 19:36 05:43 WBC 10.86 H (4.50-10.00) X 10*3/uL RBC 3.95 L (4.40-5.60) X 10*6/uL Hgb 12.3 L (13.0-17.0) d/dL Hct 36.2 L (39.6-50.0) % Neutrophils # 8.47 H (1.80-7.70) X 10*3/uL Lymphocytes # 0.86 L (0.90-5.00) X 10*3/uL Monocytes # 1.37 H (0.20-1.00) X 10*3/uL BUN (9.0-27.0) mg/dL Est GFR (CKD-EPI) (>=60) BUN/Creatinine Ratio (12.00-20.00) Ratio Glucose (70-110) mg/dL POC Glucose (mg/dL) 257 H 270 H (70-110) mg/dL Calcium (8.7-10.3) mg/dL 09/30/22 09/30/22 09/30/22 Range/Units 05:43 07:03 11:52 WBC (4.50-10.00) X 10*3/uL RBC (4.40-5.60) X 10*6/uL Hgb (13.0-17.0) d/dL Hct (39.6-50.0) % Neutrophils # (1.80-7.70) X 10*3/uL Lymphocytes # (0.90-5.00) X 10*3/uL Monocytes # (0.20-1.00) X 10*3/uL BUN 39.8 H (9.0-27.0) mg/dL Est GFR (CKD-EPI) 46 L (>=60) BUN/Creatinine Ratio 26.53 H (12.00-20.00) Ratio Glucose 140 H (70-110) mg/dL POC Glucose (mg/dL) 133 H 236 H (70-110) mg/dL Calcium 7.8 L (8.7-10.3) mg/dL Microbiology - Last 24 Hours (Table) 09/27/22 16:59 Blood Culture - Preliminary Blood 09/27/22 16:59 Blood Culture - Preliminary Blood 09/29/22 08:10 Gram Stain - Preliminary Sputum
[2022-09-30 17:09] LABS: Glucose,Whole Blood 300 mg/dL (70-110)
--- NOTE | 2022-09-30 17:44 | P.PN ---
Subjective Progress Note Date: 09/29/22 Principal diagnosis: Pneumonia Patient is 82-year-old male recently diagnosed with Pseudomonas and E. coli pneumonia as well as affecting the sinuses for the patient just completed a three-day course of oral Levaquin and subsequently presented to hospital with increasing shortness of breath and fever and a cough concerning for pneumonia on today's evaluation that is 09/29/2022, the patient did spike a fever last night of 101F did have a low-grade fever of 99.9F this morning, patient complaining of feeling weak and is currently requiring 4 L cannula oxygen the p atient denies having any chest pain he could have a cough with occasional sputum no nausea no vomiting no abdominal pain or diarrhea Patient did have white count of 13.79 with a left shift, creatinine 1.4, pro calcitonin is 1.43 Objective - Vital Signs Vital signs: Vital Signs Temp 99.9 F H 09/29/22 11:52 Pulse 96 09/29/22 11:52 Resp 18 09/29/22 11:52 BP 108/52 09/29/22 11:52 Pulse Ox 92 L 09/29/22 11:52 FiO2 Intake & Output 09/28/22 09/29/22 09/29/22 18:59 06:59 18:59 Intake Total 100 Balance 100 Intake: Intake, IV Titration 100 Amount Cefepime 2 gm In Sodium 100 Chloride 0.9% 100 ml @ 25 mls/hr IVPB Q12H [facility] Rx# :[id number] Other: # Voids 3 1 1 # Bowel Movements 1 - Exam GENERAL DESCRIPTION: An elderly male lying in bed in no distress RESPIRATORY SYSTEM: Unlabored breathing , decreased breath sounds at bases HEART: S1 S2 regular rate and rhythm , ABDOMEN: Soft , no tenderness EXTREMITIES: No edema feet - Labs CBC & Chem 7: 09/30/22 05:43 09/30/22 05:43 Labs: Abnormal Lab Results - Last 24 Hours (Table) 09/28/22 09/28/22 09/29/22 Range/Units 17:25 20:05 05:42 WBC (4.50-10.00) X 10*3/uL Neutrophils # (1.80-7.70) X 10*3/uL Monocytes # (0.20-1.00) X 10*3/uL Eosinophils # (0.04-0.35) X 10*3/uL D-Dimer (<0.60) mg/L FEU Anion Gap (4.00-12.00) mmol/L BUN (9.0-27.0) mg/dL Est GFR (CKD-EPI) (>=60) BUN/Creatinine Ratio (12.00-20.00) Ratio Glucose (70-110) mg/dL POC Glucose (mg/dL) 187 H 308 H (70-110) mg/dL Hemoglobin A1c (<=6.0) % Calcium (8.7-10.3) mg/dL AST (14-35) U/L C-Reactive Protein (0.00-0.80) mg/dL Total Protein (6.2-8.2) d/dL Albumin (3.8-4.9) d/dL Albumin/Globulin Ratio (1.60-3.17) Ratio Procalcitonin 1.43 H (0.02-0.09) ng/mL 09/29/22 09/29/22 09/29/22 Range/Units 05:42 05:42 05:42 WBC 13.79 H (4.50-10.00) X 10*3/uL Neutrophils # 11.23 H (1.80-7.70) X 10*3/uL Monocytes # 1.49 H (0.20-1.00) X 10*3/uL Eosinophils # 0.03 L (0.04-0.35) X 10*3/uL D-Dimer (<0.60) mg/L FEU Anion Gap 12.30 H (4.00-12.00) mmol/L BUN 32.8 H (9.0-27.0) mg/dL Est GFR (CKD-EPI) 50 L (>=60) BUN/Creatinine Ratio 23.43 H (12.00-20.00) Ratio Glucose 129 H (70-110) mg/dL POC Glucose (mg/dL) (70-110) mg/dL Hemoglobin A1c 9.7 H (<=6.0) % Calcium 8.2 L (8.7-10.3) mg/dL AST 37 H (14-35) U/L C-Reactive Protein 36.30 H (0.00-0.80) mg/dL Total Protein 5.0 L (6.2-8.2) d/dL Albumin 2.8 L (3.8-4.9) d/dL Albumin/Globulin Ratio 1.27 L (1.60-3.17) Ratio Procalcitonin (0.02-0.09) ng/mL 09/29/22 09/29/22 09/29/22 Range/Units 07:04 11:41 11:53 WBC (4.50-10.00) X 10*3/uL Neutrophils # (1.80-7.70) X 10*3/uL Monocytes # (0.20-1.00) X 10*3/uL Eosinophils # (0.04-0.35) X 10*3/uL D-Dimer 8.76 H (<0.60) mg/L FEU Anion Gap (4.00-12.00) mmol/L BUN (9.0-27.0) mg/dL Est GFR (CKD-EPI) (>=60) BUN/Creatinine Ratio (12.00-20.00) Ratio Glucose (70-110) mg/dL POC Glucose (mg/dL) 118 H 232 H (70-110) mg/dL Hemoglobin A1c (<=6.0) % Calcium (8.7-10.3) mg/dL AST (14-35) U/L C-Reactive Protein (0.00-0.80) mg/dL Total Protein (6.2-8.2) d/dL Albumin (3.8-4.9) d/dL Albumin/Globulin Ratio (1.60-3.17) Ratio Procalcitonin (0.02-0.09) ng/mL Microbiology - Last 24 Hours (Table) 09/27/22 16:59 Blood Culture - Preliminary Blood 09/27/22 16:59 Blood Culture - Preliminary Blood Assessment and Plan (1) Pneumonia Current Visit: Yes Status: Acute Code(s): J18.9 - PNEUMONIA, UNSPECIFIED ORGANISM SNOMED Code(s): 283768947 Plan: 1patient [facility] with sepsis in this patient with fever elevated white count source is left lower lobe pneumonia in this patient failing outpatient oral Levaquin therapy, possible need to cover for the resistant gram- negative with the likely pathogen as there is a question of recent diagnosis of Pseudomonas pneumonia 2- sputum for Gram stain and culture currently pending, patient did have elevated CRP and procalcitonin 3Patient to continue with cefepime 2 g every 8 hours while waiting for the culture to finalize at the bedside and multiple questions were answered Dictation was produced using [employer] dictation software. please excuse any gramma tical, word or spelling errors. Time with Patient: Less than 30
--- NOTE | 2022-09-30 17:45 | P.PN ---
Subjective Progress Note Date: 09/30/22 Principal diagnosis: Pneumonia Patient is 82-year-old male recently diagnosed with Pseudomonas and E. coli pneumonia as well as affecting the sinuses for the patient just completed a three-day course of oral Levaquin and subsequently presented to hospital with increasing shortness of breath and fever and a cough concerning for pneumonia on today's evaluation that is 09/30/2022, the patient did have resolution of his fever and the patient is afebrile this morning, patient mentioned feeling slightly better patient is currently on 4 L nasal cannula oxygen. Denies having any chest pain the patient cough is about the same denies any worsening sputum production and no nausea no vomiting no abdominal pain no diarrhea Patient did have white count has normalized to 10.86, creatinine is 1.5 blood culture negative sputum cultures pending Objective - Vital Signs Vital signs: Vital Signs Temp 98.5 F 09/30/22 07:02 Pulse 76 09/30/22 07:57 Resp 18 09/30/22 07:02 BP 102/48 09/30/22 07:02 Pulse Ox 98 09/30/22 01:07 FiO2 Intake & Output 09/29/22 09/30/22 09/30/22 18:59 06:59 18:59 Intake Total 200 Output Total 300 Balance -100 Intake: Intake, IV Titration 200 Amount Cefepime 2 gm In Sodium 200 Chloride 0.9% 100 ml @ 25 mls/hr IVPB Q12H [facility] Rx# :[id number] Output: Urine 300 Other: Voiding Method Toilet Urinal # Voids 1 2 - Exam GENERAL DESCRIPTION: An elderly male lying in bed in no distress RESPIRATORY SYSTEM: Unlabored breathing , decreased breath sounds at bases HEART: S1 S2 regular rate and rhythm , ABDOMEN: Soft , no tenderness EXTREMITIES: No edema feet - Labs CBC & Chem 7: 09/30/22 05:43 09/30/22 05:43 Labs: Abnormal Lab Results - Last 24 Hours (Table) 09/29/22 09/29/22 09/29/22 Range/Units 11:41 11:53 17:16 WBC (4.50-10.00) X 10*3/uL RBC (4.40-5.60) X 10*6/uL Hgb (13.0-17.0) d/dL Hct (39.6-50.0) % Neutrophils # (1.80-7.70) X 10*3/uL Lymphocytes # (0.90-5.00) X 10*3/uL Monocytes # (0.20-1.00) X 10*3/uL D-Dimer 8.76 H (<0.60) mg/L FEU BUN (9.0-27.0) mg/dL Est GFR (CKD-EPI) (>=60) BUN/Creatinine Ratio (12.00-20.00) Ratio Glucose (70-110) mg/dL POC Glucose (mg/dL) 232 H 257 H (70-110) mg/dL Calcium (8.7-10.3) mg/dL 09/29/22 09/30/22 09/30/22 Range/Units 19:36 05:43 05:43 WBC 10.86 H (4.50-10.00) X 10*3/uL RBC 3.95 L (4.40-5.60) X 10*6/uL Hgb 12.3 L (13.0-17.0) d/dL Hct 36.2 L (39.6-50.0) % Neutrophils # 8.47 H (1.80-7.70) X 10*3/uL Lymphocytes # 0.86 L (0.90-5.00) X 10*3/uL Monocytes # 1.37 H (0.20-1.00) X 10*3/uL D-Dimer (<0.60) mg/L FEU BUN 39.8 H (9.0-27.0) mg/dL Est GFR (CKD-EPI) 46 L (>=60) BUN/Creatinine Ratio 26.53 H (12.00-20.00) Ratio Glucose 140 H (70-110) mg/dL POC Glucose (mg/dL) 270 H (70-110) mg/dL Calcium 7.8 L (8.7-10.3) mg/dL 09/30/22 Range/Units 07:03 WBC (4.50-10.00) X 10*3/uL RBC (4.40-5.60) X 10*6/uL Hgb (13.0-17.0) d/dL Hct (39.6-50.0) % Neutrophils # (1.80-7.70) X 10*3/uL Lymphocytes # (0.90-5.00) X 10*3/uL Monocytes # (0.20-1.00) X 10*3/uL D-Dimer (<0.60) mg/L FEU BUN (9.0-27.0) mg/dL Est GFR (CKD-EPI) (>=60) BUN/Creatinine Ratio (12.00-20.00) Ratio Glucose (70-110) mg/dL POC Glucose (mg/dL) 133 H (70-110) mg/dL Calcium (8.7-10.3) mg/dL Microbiology - Last 24 Hours (Table) 09/27/22 16:59 Blood Culture - Preliminary Blood 09/27/22 16:59 Blood Culture - Preliminary Blood 09/29/22 08:10 Gram Stain - Preliminary Sputum Assessment and Plan (1) Pneumonia Current Visit: Yes Status: Acute Code(s): J18.9 - PNEUMONIA, UNSPECIFIED ORGANISM SNOMED Code(s): 117499289 Plan: 1patient presented hospital with sepsis in this patient with fever elevated white count source is left lower lobe pneumonia in this patient failing outpatient oral Levaquin therapy, possible need to cover for the resistant gram- negative with the likely pathogen as there is a question of recent diagnosis of Pseudomonas pneumonia 2- sputum for Gram stain and culture currently pending, patient did have elevated CRP and procalcitonin 3Patient did have some clinical improvement and well continue with cefepime while waiting for the culture to finalize at the bedside and multiple questions were answered Dictation was produced using [employer] dictation software. please excuse any grammatical, word or spelling errors. Time with Patient: Less than 30
[2022-09-30 20:23] LABS: Glucose,Whole Blood 296 mg/dL (70-110)
[2022-09-30] MEDS: ATORVASTATIN 40 MG TAB PO SCH (20:46)
[2022-09-30] MEDS: EZETIMIBE 10 MG TAB PO SCH (20:46)
[2022-09-30] MEDS: ACETAMINOPHEN TAB 325 MG TAB PO PRN (20:46)
[2022-09-30] MEDS: FUROSEMIDE 10 MG/ML 4 ML VIAL IV SCH (20:47)
--- NOTE | 2022-09-30 23:11 | CONS ---
CONSULTATION HISTORY OF PRESENT ILLNESS: Mr. Rivers is an 82-year-old gentleman who lives in [place]. He is visiting here because of a high school reunion for his . He has type 2 diabetes, hypertension, hyperlipidemia, ischemic cardiomyopathy, previous pacemaker. He also had multiple stents, last one was 9 years ago. Details are not available. The patient came in with increasing shortness of breath and also cough and a clinical picture is that of a combination of pneumonia and heart failure along with some COPD. The patient is in sinus rhythm with IVCD and evidence of possibly old inferior TX and poor R-wave progression. He is resting comfortably at the time of my evaluation. BNP is elevated and procalcitonin is elevated. PAST MEDICAL HISTORY: 1. Ischemic cardiomyopathy with previous stenting, details unavailable. Last stent 9 years ago. 2. Hypertension. 3. Diabetes mellitus. 4. Hyperlipidemia. 5. History of permanent pacemaker, details unavailable. MEDICATIONS AT HOME: Include, 1. Coreg. 2. Entresto. 3. Levothyroxine. 4. Jardiance. 5. Plavix. 6. Aspirin. 7. Amaryl. PHYSICAL EXAMINATION: VITAL SIGNS: On examination, blood pressure is 108/70, pulse rate is 84 per minute, regular. HEENT: Unremarkable. Fundus was not examined by me. NECK: Supple. There is JVD of 1 cm. No carotid bruit. HEART: Reveals S1, S2 with an ejection systolic murmur at the base and left sternal border. LUNGS: Reveal fine scattered bilateral rales. ABDOMEN: Soft, nontender. MUSCULOSKELETAL: Lower extremities reveal normal pulses. No edema. CENTRAL NERVOUS SYSTEM: Normal. DIAGNOSTIC DATA: EKG revealed sinus mechanism with IVCD, old inferior TX and poor R-wave progression and LVH. IMPRESSION: 1. Exacerbation of congestive heart failure. 2. Pneumonia. Please see Dr. Novoa's note. 3. Type 2 diabetes. 4. Hypertension. 5. Hyperlipidemia. 6. Ischemic cardiomyopathy with a previous defibrillator but recently a few months ago, had a permanent pacemaker, details unavailable. I am not sure if it is biventricular. 7. History of pneumonia. RECOMMENDATIONS: I am recommending Lasix at 40 mg IV q.12 hours. Check a BMP tomorrow and also we will resume all his home medications. I will obtain echocardiogram to assess LV function. Continue antibiotics as advised by pulmonology. Based on clinical course, I will make further recommendations. We will check a BMP tomorrow as well. I discussed my thoughts in detail with the patient. Thank you very much for the consult. BENNY / FRAN: [id number] /
[2022-10-01] MEDS: CEFEPIME 2 GM in SODIUM CHLORIDE 0.9% 100 ML IVPB SCH ×2 (03:32→16:48)
[2022-10-01] MEDS: LEVOTHYROXINE 100 MCG TAB PO SCH (06:01)
[2022-10-01 07:29] LABS: Glucose,Whole Blood 218 mg/dL (70-110)
[2022-10-01] MEDS: IPRATROPIUM 0.5 MG/2.5 ML NEBU INHALATION SCH ×4 (08:08→20:57)
[2022-10-01] MEDS: FUROSEMIDE 10 MG/ML 4 ML VIAL IV SCH (08:38)
[2022-10-01] MEDS: GLIMEPIRIDE 2 MG TAB PO SCH ×2 (08:38→20:07)
[2022-10-01] MEDS: INSULIN ASPART (NovoLOG) 100 UNIT/ML VIAL SQ SCH ×4 (08:38→20:34)
[2022-10-01] MEDS: DAPAGLIFLOZIN PROPANEDIOL 5 MG TABLET PO SCH (08:38)
[2022-10-01] MEDS: CLOPIDOGREL 75 MG TAB PO SCH (08:39)
[2022-10-01] MEDS: FERROUS SULFATE 325 MG TAB PO SCH (08:39)
[2022-10-01] MEDS: SACUBITRIL/VALSARTAN 24 MG-26 MG TABLET PO SCH ×2 (08:39→20:08)
[2022-10-01] MEDS: SPIRONOLACTONE 25 MG TAB PO SCH (08:39)
[2022-10-01] MEDS: carvediloL 6.25 MG TAB PO SCH ×2 (08:39→16:48)
[2022-10-01] MEDS: FLUTICASONE 50MCG/SPRAY NASAL 16GM EA NOSTRIL SCH (08:40)
[2022-10-01] MEDS: allopurinoL 300 MG TAB PO SCH (08:41)
[2022-10-01 09:40] LABS: BUN/Creat Ratio 28.13 Ratio (12.00-20.00); Blood Urea Nitrogen 42.2 mg/dL (9.0-27.0); Carbon Dioxide 22.3 mmol/L (21.6-31.8); Chloride 101 mmol/L (96-109); Glucose 247 mg/dL (70-110); Potassium 3.5 mmol/L (3.5-5.5); Sodium 135 mmol/L (135-145)
--- NOTE | 2022-10-01 09:55 | CA ---
Transthoracic Echo Report Name: Channing Rivers Age: 82 Gender: M : 1940 Exam Date: 09/30/2022 13:26 Exam Location: [facility] Ht (in): 70 Wt (lb): 165 Ordering Physician: Alicia Sun MD Attending/Referring Phys: Manager Regulatory Romana Masters [facility] Procedure CPT: Indications: HF Cardiac Hx: Technical Quality: Fair Contrast 1: [place] Total Dose (mL): 5 Contrast 2: Total Dose (mL): MEASUREMENTS (Male / Female) Normal Values 2D ECHO LV Diastolic Diameter PLAX 6.2 cm 4.2 - 5.9 / 3.9 - 5.3 cm LV Systolic Diameter PLAX 5.3 cm IVS Diastolic Thickness 0.8 cm 0.6 - 1.0 / 0.6 - 0.9 cm LVPW Diastolic Thickness 0.9 cm 0.6 - 1.0 / 0.6 - 0.9 cm LV Relative Wall Thickness 0.3 LVOT Diameter 2.0 cm LV Diastolic Volume MOD BP 191.9 cm??? 67 - 155 / 56 - 104 cm??? LV Systolic Volume MOD BP 123.7 cm??? 22 - 58 / 19 - 49 cm??? LV Ejection Fraction MOD BP 35.5 % >= 55 % LV Cardiac Index MOD BP 2441.7 cm???/min???m??? LV Diastolic Volume MOD 4C 224.9 cm??? LV Systolic Volume MOD 4C 133.0 cm??? LV Ejection Fraction MOD 4C 40.9 % LV Cardiac Index MOD 4C 3293.5 cm???/min???m??? LV Diastolic Length 4C 9.3 cm LV Systolic Length 4C 8.1 cm LV Diastolic Volume MOD 2C 159.2 cm??? LV Systolic Volume MOD 2C 114.7 cm??? LV Ejection Fraction MOD 2C 28.0 % LV Cardiac Index MOD 2C 1594.0 cm???/min???m??? LV Diastolic Length 2C 9.0 cm LV Systolic Length 2C 8.2 cm Ascending Aorta Diameter 3.3 cm M-MODE Aortic Root Diameter MM 2.8 cm LA Systolic Diameter MM 4.3 cm LA Ao Ratio MM 1.6 AV Cusp Separation MM 2.3 cm DOPPLER AV Peak Velocity 258.9 cm/s AV Peak Gradient 26.8 mmHg AV Mean Velocity 179.5 cm/s AV Mean Gradient 14.1 mmHg AV Velocity Time Integral 48.4 cm LVOT Peak Velocity 146.5 cm/s LVOT Peak Gradient 8.6 mmHg LVOT Velocity Time Integral 27.7 cm LVOT Stroke Volume 83.4 cm??? LVOT Stroke Volume Index 43.4 ml/m??? LVOT Cardiac Index 2987.4 cm???/min???m??? AV Area Cont Eq vti 1.7 cm??? AV Area Cont Eq pk 1.7 cm??? MV Peak Velocity 115.0 cm/s MV Peak Gradient 5.3 mmHg MV Mean Velocity 76.5 cm/s MV Mean Gradient 2.6 mmHg MV Velocity Time Integral 37.0 cm MR Peak Velocity 510.0 cm/s MR Peak Gradient 104.1 mmHg Mitral E Point Velocity 85.8 cm/s Mitral A Point Velocity 115.4 cm/s Mitral E to A Ratio 0.7 MV Deceleration Time 337.2 ms LV E' Lateral Velocity 8.4 cm/s Mitral E to LV E' Lateral Ratio 10.2 LV E' Septal Velocity 7.7 cm/s Mitral E to LV E' Septal Ratio 11.1 TR Peak Velocity 153.2 cm/s TR Peak Gradient 9.4 mmHg Right Atrial Pressure 3.0 mmHg Pulmonary Artery Systolic Pressu 12.4 mmHg Right Ventricular Systolic Press 12.4 mmHg FINDINGS Left Ventricle Mildly increased left ventricular diastolic diameter. Moderately increased left ventricular diastolic volume. Severely increased left ventricular systolic volume. Moderately decreased left ventricular ejection fraction. Left ventricular wall thickness normal. Hypokinetic inferior wall. [place] hypokinetic. Hypokinetic septum. Left ventricular ejection fraction is estimated at 30-35%. Right Ventricle Mild right ventricular dilatation. Catheter/pacemaker wire in the right ventricular cavity. Right Atrium Mild right atrial dilatation. Left Atrium Severe left atrial dilatation. Mitral Valve Structurally normal mitral valve. Mild mitral annular calcification. Mild-to- moderate mitral regurgitation. Aortic Valve Trileaflet aortic valve. Aortic valve sclerosis. Mild aortic stenosis with a peak gradient of 26.8 mmHg and a mean gradient of 14.1 mmHg. Tricuspid Valve Structurally normal tricuspid valve. Mild tricuspid regurgitation. Pulmonic Valve Structurally normal pulmonic valve. Trace pulmonic regurgitation. Pericardium Small pericardial effusion. Aorta Normal size aortic root and proximal ascending aorta. CONCLUSIONS Ischemic cardiomyopathy with ejection fraction of about 30-35% with hypokinesia of the inferior wall septum and apex. There is mild aortic stenosis with a mean gradient of 15 mmHg. Mitral and the calcification with mild to moderate mitral regurgitation. Trivial pericardial effusion. No significant pulmonary hypertension Previewed by: Dr. Vinnie Amaya MD (Electronically Signed) Final Date: 01 October 2022 09:54
[2022-10-01] MEDS ORDERED: POTASSIUM CHLORIDE ER 20 MEQ TAB.ER PO STA (10:06)
--- NOTE | 2022-10-01 10:26 | P.PN ---
Subjective Progress Note Date: 10/01/22 This is a very pleasant 82-year-old male patient who resides in [place] and is here visiting. He has a history of atrial fibrillation, coronary artery disease with previous stent placement, chronic obstructive pulmonary disease, former smoker, diabetes mellitus, hypertension, hyperlipidemia, hypothyroidism, pacemaker implantation. He also had been recently treated while in [place] for E. coli and Pseudomonas of the sinuses and lung infections with 3 weeks of Levaquin. Since his been here 3-4 days he had developed fever cough congestion was seen in urgent care and then subsequently here at the emergency room 09/27/2022. Asked x-ray revealed a left basilar infiltrate. Blood cultures are pending. White count 13.7. Hemoglobin 13.6. Platelets 232. D-dimer 8.76. Sodium 136. Potassium 4.2. BUN 32. Creatinine 1.4. Bicarb 23. Glucose 232. C-reactive protein 36.3. Pro-calcitonin 1.43. He is currently on cefepime. He is seen today in consultation on the regular medical floor. He is resting fairly comfortably in bed. Awake and alert in no acute distress. Maintaining O2 saturations in the 90s on 4 L nasal cannula. He is febrile. He had a T-max of 102.7. Currently 99.9. The patient is seen today 09/30/2022 in follow-up on the regular medical floor. He is currently resting comfortably in bed. Awake and alert in no acute distress. Reason a bit easier today compared to yesterday. Less cough and congestion. Maintaining O2 saturations in the 90s on 4 L/m per nasal cannula. His proBNP was 12,600. Pro-calcitonin was 1.43. Computed tomography scan revealed areas of consolidation bilaterally in the lower lung capone. Small bilateral pleural effusions. Mild pericardial effusion. Chest x-ray reveals bibasilar airspace opacities with trace pleural effusions. He is given Lasix 40 mg IVP 1 yesterday. He is continued on antibiotics in the form of cefepime. Continued on bronchodilators. Sodium 136. Potassium 3.6. Bicarb 22. BUN 40. Creatinine 1.5. Glucose 140. The patient is seen today 10/01/2022 in follow-up on the regular medical floor. He is awake and alert in no acute distress. Resting comfortably in bed. Maintaining O2 saturations in the 90s on 4 L/m per nasal cannula. He is afebrile. Hemodynamically stable. Echocardiogram reveals ischemic cardiomyopathy with ejection fraction 30-35% with hypokinesia impaired wall septum and apex. Mild aortic stenosis. Sputum culture revealed no growth.. Blood cultures revealed no growth. Sodium 135. Potassium 3.5. Bicarb 22. BUN 42. Creatinine 1.5. Glucose 247. He is continued on cefepime. Remains on Symbicort and Atrovent. Currently on Lasix 40 mg twice daily along with Aldactone. Currently in a -600 ML balance. Objective - Vital Signs Vital signs: Vital Signs Temp 97.8 F 10/01/22 07:23 Pulse 58 L 10/01/22 07:23 Resp 18 10/01/22 07:23 BP 99/52 10/01/22 07:23 Pulse Ox 93 L 10/01/22 07:23 FiO2 Intake & Output 09/30/22 10/01/22 10/01/22 18:59 06:59 18:59 Intake Total 100 Output Total 875 700 Balance -775 -700 Weight 74.843 kg 74.8 kg Intake: Intake, IV Titration 100 Amount Cefepime 2 gm In Sodium 100 Chloride 0.9% 100 ml @ 25 mls/hr IVPB Q12H [facility] Rx# :[id number] Output: Urine 875 700 Other: Voiding Method Toilet Urinal - Exam GENERAL EXAM: Alert, very pleasant 82-year-old male, on 4 L nasal cannula, comfortable in no apparent distress. HEAD: Normocephalic. EYES: Normal reaction of pupils, equal size. NOSE: Clear with pink turbinates. THROAT: No erythema or exudates. NECK: No masses, no JVD. CHEST: No chest wall deformity. Pacemaker, left chest. LUNGS: Equal air entry with bilateral scattered rhonchi, crackles in the posterior bases. CVS: S1 and S2 normal with no audible murmur, regular rhythm. ABDOMEN: No hepatosplenomegaly, normal bowel sounds, no guarding or rigidity. SPINE: No scoliosis or deformity SKIN: No rashes CENTRAL NERVOUS SYSTEM: No focal deficits, tone is normal in all 4 extremities. EXTREMITIES: There is no peripheral edema. No clubbing, no cyanosis. Peripheral pulses are intact. - Labs CBC & Chem 7: 09/30/22 05:43 10/01/22 06:30 Labs: Abnormal Lab Results - Last 24 Hours (Table) 09/30/22 09/30/22 09/30/22 Range/Units 05:43 05:43 11:52 WBC 10.86 H (4.50-10.00) X 10*3/uL RBC 3.95 L (4.40-5.60) X 10*6/uL Hgb 12.3 L (13.0-17.0) d/dL Hct 36.2 L (39.6-50.0) % Neutrophils # 8.47 H (1.80-7.70) X 10*3/uL Lymphocytes # 0.86 L (0.90-5.00) X 10*3/uL Monocytes # 1.37 H (0.20-1.00) X 10*3/uL BUN 39.8 H (9.0-27.0) mg/dL Est GFR (CKD-EPI) 46 L (>=60) BUN/Creatinine Ratio 26.53 H (12.00-20.00) Ratio Glucose 140 H (70-110) mg/dL POC Glucose (mg/dL) 236 H (70-110) mg/dL Calcium 7.8 L (8.7-10.3) mg/dL 09/30/22 09/30/22 10/01/22 Range/Units 17:08 20:20 06:30 WBC (4.50-10.00) X 10*3/uL RBC (4.40-5.60) X 10*6/uL Hgb (13.0-17.0) d/dL Hct (39.6-50.0) % Neutrophils # (1.80-7.70) X 10*3/uL Lymphocytes # (0.90-5.00) X 10*3/uL Monocytes # (0.20-1.00) X 10*3/uL BUN 42.2 H (9.0-27.0) mg/dL Est GFR (CKD-EPI) 46 L (>=60) BUN/Creatinine Ratio 28.13 H (12.00-20.00) Ratio Glucose 247 H (70-110) mg/dL POC Glucose (mg/dL) 300 H 296 H (70-110) mg/dL Calcium 8.0 L (8.7-10.3) mg/dL 08/09/23 Range/Units 07:27 WBC (4.50-10.00) X 10*3/uL RBC (4.40-5.60) X 10*6/uL Hgb (13.0-17.0) d/dL Hct (39.6-50.0) % Neutrophils # (1.80-7.70) X 10*3/uL Lymphocytes # (0.90-5.00) X 10*3/uL Monocytes # (0.20-1.00) X 10*3/uL BUN (9.0-27.0) mg/dL Est GFR (CKD-EPI) (>=60) BUN/Creatinine Ratio (12.00-20.00) Ratio Glucose (70-110) mg/dL POC Glucose (mg/dL) 218 H (70-110) mg/dL Calcium (8.7-10.3) mg/dL Microbiology - Last 24 Hours (Table) 09/29/22 08:10 Gram Stain - Final Sputum Sputum Culture - Final 09/27/22 16:59 Blood Culture - Preliminary Blood 09/27/22 16:59 Blood Culture - Preliminary Blood Assessment and Plan Assessment: Acute hypoxemic respiratory failure secondary to community-acquired pneumonia and an acute exacerbation of systolic congestive heart failure. ProBNP 12,600. Pro-calcitonin 1.43. Ischemic cardiomyopathy with ejection fraction 30-35% Recent history of pneumonia secondary to E. coli and Pseudomonas and treated with 3 weeks of Levaquin in the outpatient setting Coronary artery disease with previous stent placement History of congestive heart failure Hypertension Hyperlipidemia Chronic obstructive pulmonary disease Former smoker Hypothyroidism Diabetes mellitus, type II Plan: The patient was seen and evaluated Echocardiogram, labs and medications reviewed Continue cefepime, bronchodilators Continue diuretics Titrate the FiO2 as tolerated Follow up chest x-ray in a.m. We will continue to follow I have personally seen and examined the patient, performed the documentation and the assessment and plan as written. Number of minutes spent on the visit: 10.
--- NOTE | 2022-10-01 11:00 | P.PN ---
Subjective Progress Note Date: 10/01/22 History of present illness: This is an 82 year old male visiting from [place] with past medical history of diabetes mellitus type 2, hypertension, hyperlipidemia, ischemic cardiomyopathy, previous pacemaker. He also has coronary artery disease with previous stents last one done 9 years ago and details are not available. Patient presented to the hospital due to shortness of breath cough a combination of pneumonia and heart failure along with some COPD. EKG sinus rhythm with IVCD and evidence of possible old inferior [place] and poor R-wave progression. Patient was started on IV Lasix 40 mg every 12 hours. He states he is feeling well today. He continues to have some cough. Echocardiogram reveals EF of 30-35% with hypokinesia of the inferior wall septum and apex. Mild aortic stenosis with mean gradient of 15 mmHg. Mitral calcification with mild to moderate mitral regurgitation. Trivial pericardial effusion. No significant pulmonary hypertension. Repeat blood work reveals sodium 135, potassium 3.5, BUN 42 creatinine 1.5. Physical examination: Gen: This is an 82-year-old male. He is resting in bed appears to be comfortable. VS: reviewed HEENT: Head is atraumatic, normocephalic. Pupils equal, round. Sclerae is anicteric. LUNGS: Clear. No intercostal retractions. HEART: Regular rate and rhythm. Systolic ejection murmur base and left sternal border. ABDOMEN: Soft No tenderness. EXTREMITIES: No pedal edema. No calf tenderness. NEUROLOGICAL: Patient is awake, alert and oriented x3. Assessment: Acute systolic heart failure Pneumonia Ischemic cardiomyopathy with previous defibrillator a few months ago had permanent pacemaker details unavailable Coronary artery disease with previous stenting details unavailable Hypertension Hyperlipidemia Diabetes mellitus type 2 History of permanent pacemaker Plan: Transition IV Lasix to oral 40 mg twice daily Change Aldactone to 50 mg in the morning Replace potassium Continue patient on other cardiac medications from home Continue pneumonia treatment Further recommendations to follow based upon clinical course Nurse practitioner note has been reviewed, I agree with documented findings and plan of care. Patient was seen and examined. Objective - Vital Signs Vital signs: Vital Signs Temp 97.8 F 10/01/22 07:23 Pulse 58 L 10/01/22 07:23 Resp 18 10/01/22 07:23 BP 99/52 10/01/22 07:23 Pulse Ox 93 L 10/01/22 07:23 FiO2 Intake & Output 09/30/22 10/01/2223 18:59 06:59 18:59 Intake Total 100 Output Total 875 700 Balance -775 -700 Weight 74.843 kg 74.8 kg Intake: Intake, IV Titration 100 Amount Cefepime 2 gm In Sodium 100 Chloride 0.9% 100 ml @ 25 mls/hr IVPB Q12H [facility] Rx# :[id number] Output: Urine 875 700 Other: Voiding Method Toilet Toilet Urinal Urinal - Labs CBC & Chem 7: 09/30/22 05:43 10/01/22 06:30 Labs: Abnormal Lab Results - Last 24 Hours (Table) 09/30/22 09/30/22 09/30/22 Range/Units 05:43 05:43 11:52 WBC 10.86 H (4.50-10.00) X 10*3/uL RBC 3.95 L (4.40-5.60) X 10*6/uL Hgb 12.3 L (13.0-17.0) d/dL Hct 36.2 L (39.6-50.0) % Neutrophils # 8.47 H (1.80-7.70) X 10*3/uL Lymphocytes # 0.86 L (0.90-5.00) X 10*3/uL Monocytes # 1.37 H (0.20-1.00) X 10*3/uL BUN (9.0-27.0) mg/dL Est GFR (CKD-EPI) 46 L (>=60) BUN/Creatinine Ratio (12.00-20.00) Ratio Glucose (70-110) mg/dL POC Glucose (mg/dL) 236 H (70-110) mg/dL Calcium 7.8 L (8.7-10.3) mg/dL 09/30/22 09/30/22 10/01/22 Range/Units 17:08 20:20 06:30 WBC (4.50-10.00) X 10*3/uL RBC (4.40-5.60) X 10*6/uL Hgb (13.0-17.0) d/dL Hct (39.6-50.0) % Neutrophils # (1.80-7.70) X 10*3/uL Lymphocytes # (0.90-5.00) X 10*3/uL Monocytes # (0.20-1.00) X 10*3/uL BUN 42.2 H (9.0-27.0) mg/dL Est GFR (CKD-EPI) 46 L (>=60) BUN/Creatinine Ratio 28.13 H (12.00-20.00) Ratio Glucose 247 H (70-110) mg/dL POC Glucose (mg/dL) 300 H 296 H (70-110) mg/dL Calcium 8.0 L (8.7-10.3) mg/dL 10/01/22 Range/Units 07:27 WBC (4.50-10.00) X 10*3/uL RBC (4.40-5.60) X 10*6/uL Hgb (13.0-17.0) d/dL Hct (39.6-50.0) % Neutrophils # (1.80-7.70) X 10*3/uL Lymphocytes # (0.90-5.00) X 10*3/uL Monocytes # (0.20-1.00) X 10*3/uL BUN (9.0-27.0) mg/dL Est GFR (CKD-EPI) (>=60) BUN/Creatinine Ratio (12.00-20.00) Ratio Glucose (70-110) mg/dL POC Glucose (mg/dL) 218 H (70-110) mg/dL Calcium (8.7-10.3) mg/dL Microbiology - Last 24 Hours (Table) 09/29/22 08:10 Gram Stain - Final Sputum Sputum Culture - Final 09/27/22 16:59 Blood Culture - Preliminary Blood 09/27/22 16:59 Blood Culture - Preliminary Blood
[2022-10-01] MEDS: SYMBICORT 80-4.5 MCG INHALER INHALATION SCH ×2 (11:02→20:57)
--- NOTE | 2022-10-01 11:56 | P.PN ---
Subjective Progress Note Date: 10/01/22 This is a pleasant 82-year-old male who was recently admitted with left basilar pneumonia with failure of outpatient treatment being closely monitored with pulmonary along with infectious disease following. Patient has had failure of outpatient treatment for recent Pseudomonas with E. coli infection and was maintained on Levaquin in the outpatient setting. Patient continues to be short of breath requiring oxygen and does not normally wear oxygen in the outpatient setting. Chest x-ray shows bibasilar airspace opacities with a trace of pleural effusions to correlate for CHF versus pneumonia. Patient was started on IV Lasix and given an additional dose last night and today per pulmonary. Patient also continues on Symbicort inhaler. Cultures are pending and sputum culture showing many gram-negative bacilli with some gram-positive cocci and awaiting culture finalization. Patient is continued on cefepime with infectious disease following. Patient is currently afebrile continues to report shortness of breath and a cough, denies chest pain, nausea, or vomiting. Encouraged increase activity as tolerated as well. 10/01/2022 Patient seen and evaluated in follow-up of multiple medical consultations following including infectious disease, pulmonary, cardiology. Cardiology was consulted as chest x-ray was suggestive of vascular congestion. Patient underwent 2-D echo showing an EF of 30-35% with mild aortic stenosis and ischemic cardiomyopathy. Patient does have a pacemaker from previous. Patient was continued on IV Lasix twice daily and diuresed well reports to feeling better on shortness of breath and currently weaning FiO2 as tolerated. Patient is being transitioned to oral Lasix and Aldactone being adjusted. Pulmonary following and patient is continued on antibiotics with infectious disease following as well. Cultures thus far have been negative and sputum culture is negative as well. Encouraged to increase activity as tolerated and possibly walking up in the halls and will follow-up with repeat chest x-ray in the a.m. Patient is currently afebrile with no reports of chest pain or palpitations. Patient reports some improvement in shortness of breath and denies any nausea or vomiting. Review of systems: Constitutional: No reports of fatigue, no fever, or chills Cardiovascular: No reports of chest pain or palpitations Respiratory: reports shortness of breath is improving and continues with cough and some phlegm today GI: No reports of nausea, no reports of vomiting, no diarrhea : No reports of dysuria or retention Neurovascular: no reports of generalized weakness All medications have been reviewed Active Medications Acetaminophen (Acetaminophen Tab 325 Mg Tab) 650 mg PO Q6HR PRN PRN Reason: Mild Pain or Fever > 100.5 Last Admin: 09/30/22 20:46 Dose: 650 mg Allopurinol (Allopurinol 300 Mg Tab) 300 mg PO MOWEFR [facility] Last Admin: 10/01/22 08:41 Dose: 300 mg Atorvastatin Calcium (Atorvastatin 40 Mg Tab) 40 mg PO [facility] Last Admin: 09/30/22 20:46 Dose: 40 mg Budesonide/Formoterol Fumarate (Symbicort 80-4.5 Mcg Inhaler) 2 puff INHALATION RT-BID [facility] Last Admin: 10/01/22 11:02 Dose: 2 puff Carvedilol (Carvedilol 6.25 Mg Tab) 6.25 mg PO BID-W/MEALS [facility] Last Admin: 10/01/22 08:39 Dose: 6.25 mg Clopidogrel Bisulfate (Clopidogrel 75 Mg Tab) 75 mg PO DAILY [facility] Last Admin: 10/01/22 08:39 Dose: 75 mg Dapagliflozin (Dapagliflozin Propanediol 5 Mg Tablet) 5 mg PO DAILY [facility] Last Admin: 10/01/22 08:38 Dose: 5 mg Dextrose/Water (Dextrose 50% Syringe 50 Ml) 25 ml IVP PER PROTOCOL PRN; Protocol PRN Reason: Hypoglycemia Dextrose/Water (Dextrose 50% Syringe 50 Ml) 50 ml IVP PER PROTOCOL PRN; Protocol PRN Reason: Hypoglycemia Ezetimibe (Ezetimibe 10 Mg Tab) 10 mg PO [facility] Last Admin: 09/30/22 20:46 Dose: 10 mg Ferrous Sulfate (Ferrous Sulfate 325 Mg Tab) 325 mg PO DAILY [facility] Last Admin: 10/01/22 08:39 Dose: 325 mg Fluticasone Propionate (Fluticasone 50mcg/[place] Nasal 16gm) 1 spray EA NOSTRIL DAILY [facility] Last Admin: 10/01/22 08:40 Dose: 1 spray Furosemide (Furosemide 40 Mg Tab) 40 mg PO BID@0700,1600 [facility] Glimepiride (Glimepiride 2 Mg Tab) 2 mg PO BID [facility] Last Admin: 10/01/22 08:38 Dose: 2 mg Guaifenesin (Guaifenesin Syrup 100mg/5ml 200 Mg/10 Ml Cup) 200 mg PO Q6HR PRN PRN Reason: Cough Last Admin: 09/29/22 20:46 Dose: 200 mg Cefepime HCl 2 gm/ Sodium (Chloride) 100 mls @ 25 mls/hr IVPB Q12H [facility]; Protocol Last Admin: 10/01/22 03:32 Dose: 25 mls/hr Insulin Aspart (Insulin Aspart (Novolog) 100 Unit/Ml Vial) 0 unit SQ ACHS [facility]; Protocol Last Admin: 10/01/22 08:38 Dose: 4 unit Ipratropium [place] (Ipratropium 0.5 Mg/2.5 Ml Nebu) 0.5 mg INHALATION RT-QID [facility] Last Admin: 10/01/22 11:02 Dose: 0.5 mg Levothyroxine Sodium (Levothyroxine 100 Mcg Tab) 100 mcg PO 0630 [facility] Last Admin: 10/01/22 06:01 Dose: 100 mcg Naloxone HCl (Naloxone 0.4 Mg/Ml 1 Ml Vial) 0.2 mg IV Q2M PRN PRN Reason: Opioid Reversal Sacubitril/Valsartan (Sacubitril/Valsartan 24 Mg-26 Mg Tablet) 1 each PO BID [facility] Last Admin: 10/01/22 08:39 Dose: 1 each Spironolactone (Spironolactone 25 Mg Tab) 50 mg PO DAILY [facility] PHYSICAL EXAMINATION: GENERAL: The patient is alert and oriented x4, thin built, elderly appearing, well-developed HEENT: Pupils are round and equally reacting to light. EOMI. no scleral icterus. No conjunctival pallor. Normocephalic, atraumatic. No pharyngeal erythema. No thyromegaly. CARDIOVASCULAR: S1 and S2 muffled PULMONARY: diminished breath sounds bilaterally with some scattered rhonchi noted. ABDOMEN: soft. Nontender on exam. non-distended, normoactive bowel sounds. No palpable organomegaly. MUSCULOSKELETAL: No joint swelling or deformity. EXTREMITIES: No cyanosis, clubbing, or pedal edema. NEUROLOGICAL: Gross neurological examination did not reveal any focal deficits. Diffuse weakness SKIN: No rashes. Assessment: Acute left basilar pneumonia with failure of outpatient treatment Chronic obstructive pulmonary disease history History of recent Pseudomonas and E. coli infection History of congestive heart failure, acute on chronic exacerbation with EF of 30-35%, systolic dysfunction Ischemic cardiomyopathy with mild aortic stenosis History of pulmonary fibrosis History of atrial fibrillation, currently rate controlled Acute kidney injury Coronary artery disease history with stenting History of diabetes mellitus, type II, [id number] Hypertension Hyperlipidemia GI prophylaxis DVT prophylaxis Full code Plan: Patient being followed by pulmonary along with infectious disease for basilar pneumonia, likely community-acquired. Cardiology was consulted as chest x-ray showed some Pulmonary congestion and was given a dose of IV Lasix. Patient was started on IV Lasix twice daily and diuresed well showing improvements in shortness of breath and is being transitioned oral Lasix and adjustments to Aldactone being made per cardiology 2-D echo showed an EF of 30-35% with systolic dysfunction ischemic cardiomyopathy with some mild aortic stenosis noted Follow-up sputum cultures are negative and patient is maintained on antibiotics with infectious disease following. Will discuss further about discharge antibiotics Patient currently maintained on 4 L via nasal cannula and recommend wean FiO2 as tolerated Encouraged oral intake and increased activity as tolerated will continue with Accu-Cheks before meals and at bedtime and continue sliding scale for now Will discuss further with consultations following as patient is showing some signs of improvement and discuss possible discharge planning in the next 24-48 hours. Due to multiple complex medical issues, prognosis is guarded The impression and plan of care has been dictated by Porsche Gutierrez, nurse practitioner as directed. Dr. Dino MD I have performed a history and examination and MDM of this patient, discussed the same with the dictator, and agree with the dictator's assessment and plan as written ,documented as a scribe. Based on total visit time, I have performed more than 50% of the visit. Any additional findings or plans will be noted. Objective - Vital Signs Vital signs: Vital Signs Temp 97.8 F 10/01/22 07:23 Pulse 68 10/01/22 11:15 Resp 18 10/01/22 07:23 BP 99/52 10/01/22 07:23 Pulse Ox 93 L 10/01/22 07:23 FiO2 Intake & Output 09/30/22 10/01/22 10/01/22 18:59 06:59 18:59 Intake Total 100 Output Total 875 700 Balance -775 700 Weight 74.843 kg 74.8 kg Intake: Intake, IV Titration 100 Amount Cefepime 2 gm In Sodium 100 Chloride 0.9% 100 ml @ 25 mls/hr IVPB Q12H [facility] Rx# :[id number] Output: Urine 875 700 Other: Voiding Method Toilet Toilet Urinal Urinal - Labs CBC & Chem 7: 09/30/22 05:43 10/01/22 06:30 Labs: Abnormal Lab Results - Last 24 Hours (Table) 09/30/22 09/30/22 09/30/22 Range/Units 11:52 17:08 20:20 BUN (9.0-27.0) mg/dL Est GFR (CKD-EPI) (>=60) BUN/Creatinine Ratio (12.00-20.00) Ratio Glucose (70-110) mg/dL POC Glucose (mg/dL) 236 H 300 H 296 H (70-110) mg/dL Calcium (8.7-10.3) mg/dL 10/01/22 10/01/22 Range/Units 06:30 07:27 BUN 42.2 H (9.0-27.0) mg/dL Est GFR (CKD-EPI) 46 L (>=60) BUN/Creatinine Ratio 28.13 H (12.00-20.00) Ratio Glucose 247 H (70-110) mg/dL POC Glucose (mg/dL) 218 H (70-110) mg/dL Calcium 8.0 L (8.7-10.3) mg/dL Microbiology - Last 24 Hours (Table) 09/29/22 08:10 Gram Stain - Final Sputum Sputum Culture - Final 09/27/22 16:59 Blood Culture - Preliminary Blood 09/27/22 16:59 Blood Culture - Preliminary Blood
[2022-10-01 12:33] LABS: Glucose,Whole Blood 314 mg/dL (70-110)
[2022-10-01] MEDS: FUROSEMIDE 40 MG TAB PO SCH (16:48)
[2022-10-01 17:27] LABS: Glucose,Whole Blood 322 mg/dL (70-110)
[2022-10-01] MEDS: ATORVASTATIN 40 MG TAB PO SCH (20:07)
[2022-10-01] MEDS: EZETIMIBE 10 MG TAB PO SCH (20:07)
[2022-10-01] MEDS: ACETAMINOPHEN TAB 325 MG TAB PO PRN (20:07)
[2022-10-01 20:13] LABS: Glucose,Whole Blood 324 mg/dL (70-110)
[2022-10-02] MEDS: LEVOTHYROXINE 100 MCG TAB PO SCH (04:02)
[2022-10-02] MEDS: CEFEPIME 2 GM in SODIUM CHLORIDE 0.9% 100 ML IVPB SCH ×3 (04:02→22:21)
[2022-10-02 07:25] LABS: Glucose,Whole Blood 260 mg/dL (70-110)
--- NOTE | 2022-10-02 07:26 | XR ---
EXAMINATION TYPE: XR chest 2V DATE OF EXAM: 10/02/2022 7:18 AM COMPARISON: Chest radiographs from 09/30/2022 TECHNIQUE: XR chest 2V Frontal and lateral views of the chest. CLINICAL INDICATION:Male, 82 years old with history of pneumonia; FINDINGS: Lungs/Pleura: Blunting of both costophrenic angles. No pneumothorax. Improved right basilar patchy ai rspace opacities with continued left basilar patchy airspace opacities. Pulmonary vascularity: Unremarkable. Heart/mediastinum: Cardiomediastinal silhouette is prominent in size. Atherosclerotic calcifications are seen in the aorta. Three lead cardiac conduction device overlying the left hemithorax with lead tips projecting over the right ventricle, superior vena cava, and coronary sinus. Additional anterior pacing wire is identified. Coronary stent suggested. Musculoskeletal: No acute osseous pathology. IMPRESSION: Trace bilateral pleural effusions with improvement of right basilar patchy airspace opacity with cont inued left basilar patchy airspace opacity concerning for pneumonia.
[2022-10-02] MEDS: INSULIN DETEMIR (LEVEMIR) 100 UNIT/ML SYR SQ SCH ×2 (07:34→20:53)
[2022-10-02] MEDS: INSULIN ASPART (NovoLOG) 100 UNIT/ML VIAL SQ SCH ×4 (07:34→20:53)
[2022-10-02] MEDS: SACUBITRIL/VALSARTAN 24 MG-26 MG TABLET PO SCH ×2 (07:36→20:10)
[2022-10-02] MEDS: GLIMEPIRIDE 2 MG TAB PO SCH ×2 (07:36→20:09)
[2022-10-02] MEDS: SPIRONOLACTONE 25 MG TAB PO SCH (07:36)
[2022-10-02] MEDS: FLUTICASONE 50MCG/SPRAY NASAL 16GM EA NOSTRIL SCH (07:36)
[2022-10-02] MEDS: FUROSEMIDE 40 MG TAB PO SCH ×2 (07:36→15:41)
[2022-10-02] MEDS: DAPAGLIFLOZIN PROPANEDIOL 5 MG TABLET PO SCH (07:37)
[2022-10-02] MEDS: FERROUS SULFATE 325 MG TAB PO SCH (07:37)
[2022-10-02] MEDS: CLOPIDOGREL 75 MG TAB PO SCH (07:38)
[2022-10-02] MEDS: carvediloL 6.25 MG TAB PO SCH ×2 (07:39→17:54)
[2022-10-02] MEDS: SYMBICORT 80-4.5 MCG INHALER INHALATION SCH ×2 (08:13→20:35)
[2022-10-02] MEDS: IPRATROPIUM 0.5 MG/2.5 ML NEBU INHALATION SCH ×4 (08:13→20:35)
--- NOTE | 2022-10-02 09:30 | P.PN ---
Subjective Progress Note Date: 10/02/22 History of present illness: This is an 82 year old male visiting from [place] with past medical history of diabetes mellitus type 2, hypertension, hyperlipidemia, ischemic cardiomyopathy, previous pacemaker. He also has coronary artery disease with previous stents last one done 9 years ago and details are not available. Patient presented to the hospital due to shortness of breath cough a combination of pneumonia and heart failure along with some COPD. EKG sinus rhythm with IVCD and evidence of possible old inferior TX and poor R-wave progression. Patient was started on IV Lasix 40 mg every 12 hours. He states he is feeling well today. He continues to have some cough. Echocardiogram reveals EF of 30-35% with hypokinesia of the inferior wall septum and apex. Mild aortic stenosis with mean gradient of 15 mmHg. Mitral calcification with mild to moderate mitral regurgitation. Trivial pericardial effusion. No significant pulmonary hypertension. Repeat blood work reveals sodium 135, potassium 3.5, BUN 42 creatinine 1.5. 10/02 Patient is seen today in follow-up. He states his breathing seems to be stable and slowly improving. He has been afebrile, heart rate in the 60s, blood press ure 110/60, pulse ox 95% on 4 L nasal cannula. Yesterday, we transition IV Lasix to oral 40 mg twice daily. Patient normally at home he has been on torsemide in the past but not recently since he started taking Jardiance. Repeat chest x-ray reveals trace bilateral pleural effusions with improvement of right basilar patchy airspace opacities with continued left basilar patchy airspace O opacities concerning for pneumonia. Physical examination: Gen: This is an 82-year-old male. He is resting in bed appears to be comfortable. VS: reviewed HEENT: Head is atraumatic, normocephalic. Pupils equal, round. Sclerae is anicteric. LUNGS: Clear. No intercostal retractions. HEART: Regular rate and rhythm. Systolic ejection murmur base and left sternal border. ABDOMEN: Soft No tenderness. EXTREMITIES: No pedal edema. No calf tenderness. NEUROLOGICAL: Patient is awake, alert and oriented x3. Assessment: Acute systolic heart failure Pneumonia Ischemic cardiomyopathy with previous defibrillator a few months ago had permanent pacemaker details unavailable Coronary artery disease with previous stenting details unavailable Hypertension Hyperlipidemia Diabetes mellitus type 2 History of permanent pacemaker Plan: Continue oral Lasix 40 mg twice daily Continue Aldactone 50 mg in the morning Patient is cleared from cardiology for discharge and may continue on same medications except for Lasix will be replaced with torsemide 20 mg daily. Medication reconciliation has been completed for his cardiac medications. 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 Nurse practitioner note has been reviewed, I agree with documented findings and plan of care. Patient was seen and examined. Objective - Vital Signs Vital signs: Vital Signs Temp 98.2 F 10/02/22 07:37 Pulse 65 10/02/22 08:24 Resp 16 10/02/22 07:37 BP 110/60 10/02/22 07:37 Pulse Ox 95 10/02/22 08:13 FiO2 Intake & Output 10/01/22 10/02/22 10/02/22 18:59 06:59 18:59 Intake Total 222 360 Output Total 1025 1150 250 Balance -1025 -928 110 Weight 75.4 kg Intake: Oral 222 360 Output: Urine 1025 1150 250 Other: Voiding Method Toilet Toilet Urinal Urinal # Voids 1 - Labs CBC & Chem 7: 09/30/22 05:43 10/01/22 06:30 Labs: Abnormal Lab Results - Last 24 Hours (Table) 10/01/22 10/01/22 10/01/22 Range/Units 06:30 12:32 17:25 BUN 42.2 H (9.0-27.0) mg/dL Est GFR (CKD-EPI) 46 L (>=60) BUN/Creatinine Ratio 28.13 H (12.00-20.00) Ratio Glucose 247 H (70-110) mg/dL POC Glucose (mg/dL) 314 H 322 H (70-110) mg/dL Calcium 8.0 L (8.7-10.3) mg/dL 10/01/22 10/02/22 Range/Units 20:11 07:23 BUN (9.0-27.0) mg/dL Est GFR (CKD-EPI) (>=60) BUN/Creatinine Ratio (12.00-20.00) Ratio Glucose (70-110) mg/dL POC Glucose (mg/dL) 324 H 260 H (70-110) mg/dL Calcium (8.7-10.3) mg/dL Microbiology - Last 24 Hours (Table) 09/29/22 08:10 Gram Stain - Final Sputum Sputum Culture - Final
[2022-10-02 10:57] LABS: Basophils # (A) 0.04 X 10*3/uL (0.00-0.10); Basophils % (A) 0.4 %; Eosinophils # (A) 0.15 X 10*3/uL (0.04-0.35); Eosinophils % (A) 1.5 %; HCT 35.7 % (39.6-50.0); Lymphocytes % (A) 9.1 %; MCH 30.6 pg (27.0-32.0); MCHC 33.6 d/dL (32.0-37.0); MCV 91.1 FL (80.0-97.0); Mean Platelet Volume 10.4 FL (9.5-12.2); Monocytes # (A) 1.29 X 10*3/uL (0.20-1.00); NRBC Per 100 WBC 0 X 10*3/uL (0.00-0.01); Neutrophils % (A) 75.4 %; Platelet Count 294 X 10*3/uL (140-440); RBC 3.92 X 10*6/uL (4.40-5.60); RDW 14.4 % (11.5-14.5); WBC 9.94 X 10*3/uL (4.50-10.00)
[2022-10-02 11:24] LABS: ALT 206 U/L (10-49); AST 192 U/L (14-35); Albumin 2.4 d/dL (3.8-4.9); Albumin/Globulin Ratio 1.14 Ratio (1.60-3.17); Alkaline Phosphatase 64 U/L (41-126); BUN/Creat Ratio 29.21 Ratio (12.00-20.00); Blood Urea Nitrogen 40.9 mg/dL (9.0-27.0); Carbon Dioxide 20.4 mmol/L (21.6-31.8); Chloride 102 mmol/L (96-109); Globulin 2.1 d/dL (1.6-3.3); Glucose 307 mg/dL (70-110); Potassium 3.9 mmol/L (3.5-5.5); Sodium 133 mmol/L (135-145); Total Bilirubin 0.5 mg/dL (0.3-1.2); Total Protein 4.5 d/dL (6.2-8.2)
[2022-10-02 12:20] LABS: Glucose,Whole Blood 327 mg/dL (70-110)
--- NOTE | 2022-10-02 12:26 | P.PN ---
Subjective Progress Note Date: 10/02/22 This is a very pleasant 82-year-old male patient who resides in [place] and is here visiting. He has a history of atrial fibrillation, coronary artery disease with previous stent placement, chronic obstructive pulmonary disease, former smoker, diabetes mellitus, hypertension, hyperlipidemia, hypothyroidism, pacemaker implantation. He also had been recently treated while in [place] for E. coli and Pseudomonas of the sinuses and lung infections with 3 weeks of Levaquin. Since his been here 3-4 days he had developed fever cough congestion was seen in urgent care and then subsequently here at the emergency room 09/27/2022. Asked x-ray revealed a left basilar infiltrate. Blood cultures are pending. White count 13.7. Hemoglobin 13.6. Platelets 232. D-dimer 8.76. Sodium 136. Potassium 4.2. BUN 32. Creatinine 1.4. Bicarb 23. Glucose 232. C-reactive protein 36.3. Pro-calcitonin 1.43. He is currently on cefepime. He is seen today in consultation on the regular medical floor. He is resting fairly comfortably in bed. Awake and alert in no acute distress. Maintaining O2 saturations in the 90s on 4 L nasal cannula. He is febrile. He had a T-max of 102.7. Currently 99.9. The patient is seen today 09/30/2022 in follow-up on the regular medical floor. He is currently resting comfortably in bed. Awake and alert in no acute distress. Reason a bit easier today compared to yesterday. Less cough and congestion. Maintaining O2 saturations in the 90s on 4 L/m per nasal cannula. His proBNP was 12,600. Pro-calcitonin was 1.43. Computed tomography scan revealed areas of consolidation bilaterally in the lower lung capone. Small bilateral pleural effusions. Mild pericardial effusion. Chest x-ray reveals bibasilar airspace opacities with trace pleural effusions. He is given Lasix 40 mg IVP 1 yesterday. He is continued on antibiotics in the form of cefepime. Continued on bronchodilators. Sodium 136. Potassium 3.6. Bicarb 22. BUN 40. Creatinine 1.5. Glucose 140. The patient is seen today 10/01/2022 in follow-up on the regular medical floor. He is awake and alert in no acute distress. Resting comfortably in bed. Maintaining O2 saturations in the 90s on 4 L/m per nasal cannula. He is afebrile. Hemodynamically stable. Echocardiogram reveals ischemic cardiomyopathy with ejection fraction 30-35% with hypokinesia impaired wall septum and apex. Mild aortic stenosis. Sputum culture revealed no growth.. Blood cultures revealed no growth. Sodium 135. Potassium 3.5. Bicarb 22. BUN 42. Creatinine 1.5. Glucose 247. He is continued on cefepime. Remains on Symbicort and Atrovent. Currently on Lasix 40 mg twice daily along with Aldactone. Currently in a -600 ML balance. The patient is seen today 10/02/2022 in follow-up on the regular medical floor. He is currently resting comfortably in bed. Awake and alert in no acute distress. Maintaining O2 saturations in the 90s on 2 L nasal cannula. Follow- up chest x-ray shows improvement of the right basilar patchy airspace opacity. Continued trace pleural effusions. Left basilar patchy airspace remains. Blood cultures reveal no growth. Sputum culture revealed no growth. White count 9.9. Hemoglobin 12.0. Platelets 294. Sodium 133. Potassium 3.9. Bicarb 20. BUN 41. Creatinine 1.4. Glucose 307. He remains on cefepime, Symbicort. Remains on oral diuretics. Currently in a -1.9 L balance. Objective - Vital Signs Vital signs: Vital Signs Temp 98.2 F 10/02/22 07:37 Pulse 63 10/02/22 09:13 Resp 16 10/02/22 07:37 BP 110/60 10/02/22 07:37 Pulse Ox 95 10/02/22 09:13 FiO2 Intake & Output 10/01/22 10/02/22 10/02/22 18:59 06:59 18:59 Intake Total 222 360 Output Total 1025 1150 250 Balance -1025 928 110 Weight 75.4 kg Intake: Oral 222 360 Output: Urine 1025 1150 250 Other: Voiding Method Toilet Toilet Urinal Urinal # Voids 1 - Exam GENERAL EXAM: Alert, oriented 82-year-old male, on 2 L nasal cannula, in no apparent distress. HEAD: Normocephalic. EYES: Normal reaction of pupils, equal size. NOSE: Clear with pink turbinates. THROAT: No erythema or exudates. NECK: No masses, no JVD. CHEST: No chest wall deformity. Pacemaker, left chest. LUNGS: Equal air entry with bilateral scattered rhonchi, crackles in the posterior bases. CVS: S1 and S2 normal with no audible murmur, regular rhythm. ABDOMEN: No hepatosplenomegaly, normal bowel sounds, no guarding or rigidity. SPINE: No scoliosis or deformity SKIN: No rashes CENTRAL NERVOUS SYSTEM: No focal deficits, tone is normal in all 4 extremities. EXTREMITIES: There is no peripheral edema. No clubbing, no cyanosis. Peripher al pulses are intact. - Labs CBC & Chem 7: 10/02/22 06:11 10/02/22 06:11 Labs: Abnormal Lab Results - Last 24 Hours (Table) 10/01/22 10/01/22 10/01/22 Range/Units 12:32 17:25 20:11 RBC (4.40-5.60) X 10*6/uL Hgb (13.0-17.0) d/dL Hct (39.6-50.0) % Monocytes # (0.20-1.00) X 10*3/uL Sodium (135-145) mmol/L Carbon Dioxide (21.6-31.8) mmol/L BUN (9.0-27.0) mg/dL Est GFR (CKD-EPI) (>=60) BUN/Creatinine Ratio (12.00-20.00) Ratio Glucose (70-110) mg/dL POC Glucose (mg/dL) 314 H 322 H 324 H (70-110) mg/dL Calcium (8.7-10.3) mg/dL AST (14-35) U/L ALT (10-49) U/L C-Reactive Protein (0.00-0.80) mg/dL Total Protein (6.2-8.2) d/dL Albumin (3.8-4.9) d/dL Albumin/Globulin Ratio (1.60-3.17) Ratio 10/02/22 10/02/22 10/02/22 Range/Units 06:11 06:11 07:23 RBC 3.92 L (4.40-5.60) X 10*6/uL Hgb 12.0 L (13.0-17.0) d/dL Hct 35.7 L (39.6-50.0) % Monocytes # 1.29 H (0.20-1.00) X 10*3/uL Sodium 133 L (135-145) mmol/L Carbon Dioxide 20.4 L (21.6-31.8) mmol/L BUN 40.9 H (9.0-27.0) mg/dL Est GFR (CKD-EPI) 50 L (>=60) BUN/Creatinine Ratio 29.21 H (12.00-20.00) Ratio Glucose 307 H (70-110) mg/dL POC Glucose (mg/dL) 260 H (70-110) mg/dL Calcium 8.0 L (8.7-10.3) mg/dL AST 192 H (14-35) U/L ALT 206 H (10-49) U/L C-Reactive Protein 13.70 H (0.00-0.80) mg/dL Total Protein 4.5 L (6.2-8.2) d/dL Albumin 2.4 L (3.8-4.9) d/dL Albumin/Globulin Ratio 1.14 L (1.60-3.17) Ratio Microbiology - Last 24 Hours (Table) 09/29/22 08:10 Gram Stain - Final Sputum Sputum Culture - Final Assessment and Plan Assessment: Acute hypoxemic respiratory failure secondary to community-acquired pneumonia and an acute exacerbation of systolic congestive heart failure. ProBNP 12,600. Pro-calcitonin 1.43. Ischemic cardiomyopathy with ejection fraction 30-35% Recent history of pneumonia secondary to E. coli and Pseudomonas and treated with 3 weeks of Levaquin in the outpatient setting Coronary artery disease with previous stent placement History of congestive heart failure Hypertension Hyperlipidemia Chronic obstructive pulmonary disease Former smoker Hypothyroidism Diabetes mellitus, type II Plan: The patient was seen and evaluated Labs, chest x-ray and medications reviewed Continue cefepime, bronchodilators Continue diuretics Titrate the FiO2 as tolerated Probable discharge in the a.m. Will need close follow-up with his soft water mechanic in [place] We will continue to follow I have personally seen and examined the patient, performed the documentation and the assessment and plan as written. Number of minutes spent on the visit: 10.
--- NOTE | 2022-10-02 17:00 | P.PN ---
Subjective Progress Note Date: 10/02/22 This is a pleasant 82-year-old male who was recently admitted with left basilar pneumonia with failure of outpatient treatment being closely monitored with pulmonary along with infectious disease following. Patient has had failure of outpatient treatment for recent Pseudomonas with E. coli infection and was maintained on Levaquin in the outpatient setting. Patient continues to be short of breath requiring oxygen and does not normally wear oxygen in the outpatient setting. Chest x-ray shows bibasilar airspace opacities with a trace of pleural effusions to correlate for CHF versus pneumonia. Patient was started on IV Lasix and given an additional dose last night and today per pulmonary. Patient also continues on Symbicort inhaler. Cultures are pending and sputum culture showing many gram-negative bacilli with some gram-positive cocci and awaiting culture finalization. Patient is continued on cefepime with infectious disease following. Patient is currently afebrile continues to report shortness of breath and a cough, denies chest pain, nausea, or vomiting. Encouraged increase activity as tolerated as well. 10/01/2022 Patient seen and evaluated in follow-up of multiple medical consultations following including infectious disease, pulmonary, cardiology. Cardiology was consulted as chest x-ray was suggestive of vascular congestion. Patient underwent 2-D echo showing an EF of 30-35% with mild aortic stenosis and ischemic cardiomyopathy. Patient does have a pacemaker from previous. Patient was continued on IV Lasix twice daily and diuresed well reports to feeling better on shortness of breath and currently weaning FiO2 as tolerated. Patient is being transitioned to oral Lasix and Aldactone being adjusted. Pulmonary following and patient is continued on antibiotics with infectious disease following as well. Cultures thus far have been negative and sputum culture is negative as well. Encouraged to increase activity as tolerated and possibly walking up in the halls and will follow-up with repeat chest x-ray in the a.m. Patient is currently afebrile with no reports of chest pain or palpitations. Patient reports some improvement in shortness of breath and denies any nausea or vomiting. 10/02/2022 Patient is seen and evaluated in follow-up this morning currently sitting up in bed on room air reports his shortness of breath is improving. Home O2 evaluati on to be done as patient continues to desat with minimal exertion. Patient was seen and evaluated by consultations considering possible discharge later today or in the a.m. and will arrange for possible home oxygen as well as discharge planning. Patient normally resides in [place] and is here staying in a hotel and family is coming here to assist. Patient is afebrile denies chest pain or worsening shortness of breath. Patient tolerating diet with no reported nausea or vomiting noted. Discharge planning in place for a.m. Encouraged increase activity as tolerated and will have physical therapy evaluate the patient. Review of systems: Constitutional: No reports of fatigue, no fever, or chills Cardiovascular: No reports of chest pain or palpitations Respiratory: reports shortness of breath is improving and continues with cough and some phlegm today GI: No reports of nausea, no reports of vomiting, no diarrhea : No reports of dysuria or retention Neurovascular: no reports of generalized weakness All medications have been reviewed PHYSICAL EXAMINATION: GENERAL: The patient is alert and oriented x4, thin built, elderly appearing, well-developed HEENT: Pupils are round and equally reacting to light. EOMI. no scleral icterus. No conjunctival pallor. Normocephalic, atraumatic. No pharyngeal erythema. No thyromegaly. CARDIOVASCULAR: S1 and S2 muffled PULMONARY: diminished breath sounds bilaterally with some scattered rhonchi noted. ABDOMEN: soft. Nontender on exam. non-distended, normoactive bowel sounds. No palpable organomegaly. MUSCULOSKELETAL: No joint swelling or deformity. EXTREMITIES: No cyanosis, clubbing, or pedal edema. NEUROLOGICAL: Gross neurological examination did not reveal any focal deficits. Diffuse weakness SKIN: No rashes. Assessment: Acute left basilar pneumonia with failure of outpatient treatment Acute hypoxic respiratory failure multifactorial secondary to left basilar pneumonia as well as CHF exacerbation Chronic obstructive pulmonary disease history History of recent Pseudomonas and E. coli infection History of congestive heart failure, acute on chronic exacerbation with EF of 30-35%, systolic dysfunction Ischemic cardiomyopathy with mild aortic stenosis History of pulmonary fibrosis History of atrial fibrillation, currently rate controlled Acute kidney injury Coronary artery disease history with stenting History of diabetes mellitus, type II, [id number] Hypertension Hyperlipidemia GI prophylaxis DVT prophylaxis Full code Plan: Patient being followed by pulmonary along with infectious disease for basilar pneumonia, likely community-acquired. Patient will continue on oral Avelox for 1 week on discharge and has been continued on cefepime. Cultures have been negative Cardiology evaluated the patient for CHF exacerbation and is maintained on Aldactone along with Entresto and oral Lasix. Cardiology recommending close outpatient follow-up with [facility] maker 2-D echo showed an EF of 30-35% with systolic dysfunction ischemic cardiomyopathy with some mild aortic stenosis noted Patient currently maintained on 4 L via nasal cannula and recommend wean FiO2 as tolerated . Patient failed home O2 evaluation and will require oxygen on discharge at 4 L via nasal cannula to manage COPD and CHF Encouraged oral intake and increased activity as tolerated, PT/OT therapy to evaluate will continue with Accu-Cheks before meals and at bedtime and continue sliding scale for now discharge planning in progress and patient will likely discharge in 24 hours Due to multiple complex medical issues, prognosis is guarded The impression and plan of care has been dictated by Porsche Gutierrez, nurse practitioner as directed. Dr. Dino MD I have performed a history and examination and MDM of this patient, discussed the same with the dictator, and agree with the dictator's assessment and plan as written ,documented as a scribe. Based on total visit time, I have performed more than 50% of the visit. Any additional findings or plans will be noted. Objective - Vital Signs Vital signs: Vital Signs Temp 98.2 F 10/02/22 07:37 Pulse 63 10/02/22 09:13 Resp 16 10/02/22 07:37 BP 110/60 10/02/22 07:37 Pulse Ox 95 10/02/22 09:13 FiO2 Intake & Output 10/01/22 10/02/22 10/02/22 18:59 06:59 18:59 Intake Total 222 360 Output Total 1025 1150 250 Balance -1025 -928 110 Weight 75.4 kg Intake: Oral 222 360 Output: Urine 1025 1150 250 Other: Voiding Method Toilet Toilet Urinal Urinal # Voids 1 - Labs CBC & Chem 7: 10/02/22 06:11 10/02/22 06:11 Labs: Abnormal Lab Results - Last 24 Hours (Table) 10/01/22 10/01/22 10/01/22 Range/Units 12:32 17:25 20:11 POC Glucose (mg/dL) 314 H 322 H 324 H (70-110) mg/dL 10/02/22 Range/Units 07:23 POC Glucose (mg/dL) 260 H (70-110) mg/dL Microbiology - Last 24 Hours (Table) 09/29/22 08:10 Gram Stain - Final Sputum Sputum Culture - Final
[2022-10-02 17:27] LABS: Glucose,Whole Blood 346 mg/dL (70-110)
[2022-10-02] MEDS: ATORVASTATIN 40 MG TAB PO SCH (20:10)
[2022-10-02] MEDS: EZETIMIBE 10 MG TAB PO SCH (20:10)
[2022-10-02 20:24] LABS: Glucose,Whole Blood 312 mg/dL (70-110)
--- NOTE | 2022-10-02 22:11 | P.PN ---
Subjective Progress Note Date: 10/01/22 Principal diagnosis: Pneumonia Patient is 82-year-old male recently diagnosed with Pseudomonas and E. coli pneumonia as well as affecting the sinuses for the patient just completed a three-day course of oral Levaquin and subsequently presented to hospital with increasing shortness of breath and fever and a cough concerning for pneumonia on today's evaluation that is 10/01/2022 the patient did have a low-grade fever of 99.8 F last night the patient is afebrile since then, patient is a breathing comfortably on 4 L nasal cannula oxygen patient denies having any chest pain he continue to have a cough and is bringing up more sputum no hemoptysis no nausea vomiting no abdominal pain no diarrhea. Patient did have a white count of 10.86 as of yesterday no CBC was done today creatinine is 1.5, blood and sputum cultures so far negative Objective - Vital Signs Vital signs: Vital Signs Temp 97.8 F 10/01/22 07:23 Pulse 68 10/01/22 11:15 Resp 18 10/01/22 07:23 BP 99/52 10/01/22 07:23 Pulse Ox 93 L 10/01/22 07:23 FiO2 Intake & Output 09/30/22 10/01/22 10/01/22 18:59 06:59 18:59 Intake Total 100 Output Total 875 700 Balance -775 -700 Weight 74.843 kg 74.8 kg Intake: Intake, IV Titration 100 Amount Cefepime 2 gm In Sodium 100 Chloride 0.9% 100 ml @ 25 mls/hr IVPB Q12H [facility] Rx# :[id number] Output: Urine 875 700 Other: Voiding Method Toilet Toilet Urinal Urinal - Exam GENERAL DESCRIPTION: An elderly male lying in bed in no distress RESPIRATORY SYSTEM: Unlabored breathing , decreased breath sounds at bases HEART: S1 S2 regular rate and rhythm , ABDOMEN: Soft , no tenderness EXTREMITIES: No edema feet - Labs CBC & Chem 7: 10/02/22 06:11 10/02/22 06:11 Labs: Abnormal Lab Results - Last 24 Hours (Table) 09/30/22 09/30/22 10/01/22 Range/Units 17:08 20:20 06:30 BUN 42.2 H (9.0-27.0) mg/dL Est GFR (CKD-EPI) 46 L (>=60) BUN/Creatinine Ratio 28.13 H (12.00-20.00) Ratio Glucose 247 H (70-110) mg/dL POC Glucose (mg/dL) 300 H 296 H (70-110) mg/dL Calcium 8.0 L (8.7-10.3) mg/dL 10/01/22 10/01/22 Range/Units 07:27 12:32 BUN (9.0-27.0) mg/dL Est GFR (CKD-EPI) (>=60) BUN/Creatinine Ratio (12.00-20.00) Ratio Glucose (70-110) mg/dL POC Glucose (mg/dL) 218 H 314 H (70-110) mg/dL Calcium (8.7-10.3) mg/dL Microbiology - Last 24 Hours (Table) 09/29/22 08:10 Gram Stain - Final Sputum Sputum Culture - Final 09/27/22 16:59 Blood Culture - Preliminary Blood 09/27/22 16:59 Blood Culture - Preliminary Blood Assessment and Plan (1) Pneumonia Current Visit: Yes Status: Acute Code(s): J18.9 - PNEUMONIA, UNSPECIFIED ORGANISM SNOMED Code(s): 182783670 Plan: 1patient presented hospital with sepsis in this patient with fever elevated white count source is left lower lobe pneumonia in this patient failing outpatient oral Levaquin therapy, possible need to cover for the resistant gram- negative with the likely pathogen as there is a question of recent diagnosis of Pseudomonas pneumonia 2- sputum for Gram stain and culture currently pending, patient did have el evated CRP and procalcitonin 3Patient did shown clinical improvement and we will continue with cefepime while waiting for the culture to finalize and monitor clinical course closely , repeat chest xray in am Dictation was produced using [employer] dictation software. please excuse any grammatical, word or spelling errors. Time with Patient: Less than 30
--- NOTE | 2022-10-02 22:13 | P.PN ---
Subjective Progress Note Date: 10/02/22 Principal diagnosis: Pneumonia Patient is 82-year-old male recently diagnosed with Pseudomonas and E. coli pneumonia as well as affecting the sinuses for the patient just completed a three-day course of oral Levaquin and subsequently presented to hospital with increasing shortness of breath and fever and a cough concerning for pneumonia on today's evaluation that is 10/02/2022, the patient remains to be afebrile, the patient is breathing comfortably on 4 L nasal cannula oxygen patient denies having any chest pain patient continues have a cough and is bringing up sputum no hemoptysis no nausea no vomiting no choking before no abdominal pain no diarrhea. Patient white count normal is 9.94 creatinine is 1.4 blood and sputum culture has been negative chest x-ray did shows improvement in the right basilar opacity continued to have left basilar opacity concerning for pneumonia Objective - Vital Signs Vital signs: Vital Signs Temp 98.2 F 10/02/22 07:37 Pulse 63 10/02/22 09:13 Resp 16 10/02/22 07:37 BP 110/60 10/02/22 07:37 Pulse Ox 95 10/02/22 09:13 FiO2 Intake & Output 10/01/22 10/02/22 10/02/22 18:59 06:59 18:59 Intake Total 222 360 Output Total 1025 1150 250 Balance -1025 -928 110 Weight 75.4 kg Intake: Oral 222 360 Output: Urine 1025 1150 250 Other: Voiding Method Toilet Toilet Urinal Urinal # Voids 1 - Exam GENERAL DESCRIPTION: An elderly male lying in bed in no distress RESPIRATORY SYSTEM: Unlabored breathing , decreased breath sounds at bases HEART: S1 S2 regular rate and rhythm , ABDOMEN: Soft , no tenderness EXTREMITIES: No edema feet - Labs CBC & Chem 7: 10/02/22 06:11 10/02/22 06:11 Labs: Abnormal Lab Results - Last 24 Hours (Table) 10/01/22 10/01/22 10/01/22 Range/Units 12:32 17:25 20:11 RBC (4.40-5.60) X 10*6/uL Hgb (13.0-17.0) d/dL Hct (39.6-50.0) % Monocytes # (0.20-1.00) X 10*3/uL POC Glucose (mg/dL) 314 H 322 H 324 H (70-110) mg/dL C-Reactive Protein (0.00-0.80) mg/dL 10/02/22 10/02/22 10/02/22 Range/Units 06:11 06:11 07:23 RBC 3.92 L (4.40-5.60) X 10*6/uL Hgb 12.0 L (13.0-17.0) d/dL Hct 35.7 L (39.6-50.0) % Monocytes # 1.29 H (0.20-1.00) X 10*3/uL POC Glucose (mg/dL) 260 H (70-110) mg/dL C-Reactive Protein 13.70 H (0.00-0.80) mg/dL Microbiology - Last 24 Hours (Table) 09/29/22 08:10 Gram Stain - Final Sputum Sputum Culture - Final Assessment and Plan (1) Pneumonia Current Visit: Yes Status: Acute Code(s): J18.9 - PNEUMONIA, UNSPECIFIED ORGANISM SNOMED Code(s): 250094928 Plan: 1patient presented hospital with sepsis in this patient with fever elevated white count source is left lower lobe pneumonia in this patient failing outpatient oral Levaquin therapy, possible need to cover for the resistant gram- negative with the likely pathogen as there is a question of recent diagnosis of Pseudomonas pneumonia 2- sputum for Gram stain and culture currently pending, patient did have elevated CRP and procalcitonin 3Patient seem to have shown clinical improvement and the patient did have a negative blood culture sputum is usually respiratory fifi keeping in mind the patient recently grew Pseudomonas in the sputum we will consider oral Avelox 400 daily x 10 days on discharge this were discussed in detail with the nurse practitioner for admitting team Dictation was produced using [employer] dictation software. please excuse any grammatical, word or spelling errors. Time with Patient: Less than 30
[2022-10-03] MEDS: CEFEPIME 2 GM in SODIUM CHLORIDE 0.9% 100 ML IVPB SCH (05:32)
[2022-10-03] MEDS: carvediloL 6.25 MG TAB PO SCH (06:24)
[2022-10-03] MEDS: LEVOTHYROXINE 100 MCG TAB PO SCH (06:24)
[2022-10-03] MEDS: FUROSEMIDE 40 MG TAB PO SCH (06:25)
[2022-10-03 07:27] LABS: Glucose,Whole Blood 169 mg/dL (70-110)
[2022-10-03 08:06] VITALS: BP 112/60; RESP 18; TEMP 98.4
[2022-10-03] MEDS: IPRATROPIUM 0.5 MG/2.5 ML NEBU INHALATION SCH ×2 (08:19→11:30)
[2022-10-03] MEDS: SYMBICORT 80-4.5 MCG INHALER INHALATION SCH (08:19)
[2022-10-03] MEDS: INSULIN DETEMIR (LEVEMIR) 100 UNIT/ML SYR SQ SCH (08:30)
[2022-10-03] MEDS: INSULIN ASPART (NovoLOG) 100 UNIT/ML VIAL SQ SCH ×2 (08:30→13:40)
[2022-10-03] MEDS: SACUBITRIL/VALSARTAN 24 MG-26 MG TABLET PO SCH (08:31)
[2022-10-03] MEDS: CLOPIDOGREL 75 MG TAB PO SCH (08:31)
[2022-10-03] MEDS: FERROUS SULFATE 325 MG TAB PO SCH (08:31)
[2022-10-03] MEDS: GLIMEPIRIDE 2 MG TAB PO SCH (08:31)
[2022-10-03] MEDS: SPIRONOLACTONE 25 MG TAB PO SCH (08:31)
[2022-10-03] MEDS: DAPAGLIFLOZIN PROPANEDIOL 5 MG TABLET PO SCH (08:31)
[2022-10-03] MEDS: FLUTICASONE 50MCG/SPRAY NASAL 16GM EA NOSTRIL SCH (08:32)
[2022-10-03] MEDS: allopurinoL 300 MG TAB PO SCH (08:38)
[2022-10-03] MEDS ORDERED: CEFEPIME 2 GM in SODIUM CHLORIDE 0.9% 100 ML IVPB SCH (09:00)
[2022-10-03] MEDS ORDERED: CEFDINIR 300 MG CAP PO SCH (09:15)
--- NOTE | 2022-10-03 10:16 | P.PN ---
Subjective Progress Note Date: 10/03/22 This is a very pleasant 82-year-old male patient who resides in [place] and is here visiting. He has a history of atrial fibrillation, coronary artery disease with previous stent placement, chronic obstructive pulmonary disease, former smoker, diabetes mellitus, hypertension, hyperlipidemia, hypothyroidism, pacemaker implantation. He also had been recently treated while in [place] for E. coli and Pseudomonas of the sinuses and lung infections with 3 weeks of Levaquin. Since his been here 3-4 days he had developed fever cough congestion was seen in urgent care and then subsequently here at the emergency room 09/27/2022. Asked x-ray revealed a left basilar infiltrate. Blood cultures are pending. White count 13.7. Hemoglobin 13.6. Platelets 232. D-dimer 8.76. Sodium 136. Potassium 4.2. BUN 32. Creatinine 1.4. Bicarb 23. Glucose 232. C-reactive protein 36.3. Pro-calcitonin 1.43. He is currently on cefepime. He is seen today in consultation on the regular medical floor. He is resting fairly comfortably in bed. Awake and alert in no acute distress. Maintaining O2 saturations in the 90s on 4 L nasal cannula. He is febrile. He had a T-max of 102.7. Currently 99.9. The patient is seen today 09/30/2022 in follow-up on the regular medical floor. He is currently resting comfortably in bed. Awake and alert in no acute distress. Reason a bit easier today compared to yesterday. Less cough and congestion. Maintaining O2 saturations in the 90s on 4 L/m per nasal cannula. His proBNP was 12,600. Pro-calcitonin was 1.43. Computed tomography scan revealed areas of consolidation bilaterally in the lower lung capone. Small bilateral pleural effusions. Mild pericardial effusion. Chest x-ray reveals bibasilar airspace opacities with trace pleural effusions. He is given Lasix 40 mg IVP 1 yesterday. He is continued on antibiotics in the form of cefepime. Continued on bronchodilators. Sodium 136. Potassium 3.6. Bicarb 22. BUN 40. Creatinine 1.5. Glucose 140. The patient is seen today 10/01/2022 in follow-up on the regular medical floor. He is awake and alert in no acute distress. Resting comfortably in bed. Maintaining O2 saturations in the 90s on 4 L/m per nasal cannula. He is afebrile. Hemodynamically stable. Echocardiogram reveals ischemic cardiomyopathy with ejection fraction 30-35% with hypokinesia impaired wall septum and apex. Mild aortic stenosis. Sputum culture revealed no growth.. Blood cultures revealed no growth. Sodium 135. Potassium 3.5. Bicarb 22. BUN 42. Creatinine 1.5. Glucose 247. He is continued on cefepime. Remains on Symbicort and Atrovent. Currently on Lasix 40 mg twice daily along with Aldactone. Currently in a -600 ML balance. The patient is seen today 10/02/2022 in follow-up on the regular medical floor. He is currently resting comfortably in bed. Awake and alert in no acute distress. Maintaining O2 saturations in the 90s on 2 L nasal cannula. Follow- up chest x-ray shows improvement of the right basilar patchy airspace opacity. Continued trace pleural effusions. Left basilar patchy airspace remains. Blood cultures reveal no growth. Sputum culture revealed no growth. White count 9.9. Hemoglobin 12.0. Platelets 294. Sodium 133. Potassium 3.9. Bicarb 20. BUN 41. Creatinine 1.4. Glucose 307. He remains on cefepime, Symbicort. Remains on oral diuretics. Currently in a -1.9 L balance. The patient is seen today 10/03/2022 in follow-up on the regular medical floor. He is awake and alert in no acute distress. Maintaining O2 saturation in the 90s on 3 L/m per nasal cannula. He is afebrile. Hemodynamically stable. Continues with a loose nonproductive cough. No fever or chills. Blood cultures revealed no growth. Sputum culture revealed no growth. Continued on cefepime. He remains on oral diuretics. Objective - Vital Signs Vital signs: Vital Signs Temp 98.4 F 10/03/22 07:20 Pulse 67 10/03/22 08:30 Resp 18 10/03/22 07:20 BP 112/60 10/03/22 07:20 Pulse Ox 93 L 10/03/22 08:20 FiO2 Intake & Output 10/02/22 10/03/22 10/03/22 18:59 06:59 18:59 Intake Total 360 720 Output Total 550 1075 450 Balance -190 -355 -450 Weight 77 kg Intake: Oral 360 720 Output: Urine 550 1075 450 Other: Voiding Method Toilet Urinal # Voids 1 2 - Exam GENERAL EXAM: Alert, pleasant 82-year-old male, sitting up in bed, on 3 L nasal cannula, in no apparent distress. HEAD: Normocephalic. EYES: Normal reaction of pupils, equal size. NOSE: Clear with pink turbinates. THROAT: No erythema or exudates. NECK: No masses, no JVD. CHEST: No chest wall deformity. Pacemaker, left chest. LUNGS: Equal air entry with few crackles in the posterior bases. CVS: S1 and S2 normal with no audible murmur, regular rhythm. ABDOMEN: No hepatosplenomegaly, normal bowel sounds, no guarding or rigidity. SPINE: No scoliosis or deformity SKIN: No rashes CENTRAL NERVOUS SYSTEM: No focal deficits, tone is normal in all 4 extremities. EXTREMITIES: There is no peripheral edema. No clubbing, no cyanosis. Peripheral pulses are intact. - Labs CBC & Chem 7: 10/02/22 06:11 10/02/22 06:11 Labs: Abnormal Lab Results - Last 24 Hours (Table) 10/02/22 10/02/22 10/02/22 Range/Units 06:11 06:11 12:18 RBC 3.92 L (4.40-5.60) X 10*6/uL Hgb 12.0 L (13.0-17.0) d/dL Hct 35.7 L (39.6-50.0) % Monocytes # 1.29 H (0.20-1.00) X 10*3/uL Sodium 133 L (135-145) mmol/L Carbon Dioxide 20.4 L (21.6-31.8) mmol/L BUN 40.9 H (9.0-27.0) mg/dL Est GFR (CKD-EPI) 50 L (>=60) BUN/Creatinine Ratio 29.21 H (12.00-20.00) Ratio Glucose 307 H (70-110) mg/dL POC Glucose (mg/dL) 327 H (70-110) mg/dL Calcium 8.0 L (8.7-10.3) mg/dL AST 192 H (14-35) U/L ALT 206 H (10-49) U/L C-Reactive Protein 13.70 H (0.00-0.80) mg/dL Total Protein 4.5 L (6.2-8.2) d/dL Albumin 2.4 L (3.8-4.9) d/dL Albumin/Globulin Ratio 1.14 L (1.60-3.17) Ratio 10/02/22 10/02/22 10/03/22 Range/Units 17:26 20:22 07:26 RBC (4.40-5.60) X 10*6/uL Hgb (13.0-17.0) d/dL Hct (39.6-50.0) % Monocytes # (0.20-1.00) X 10*3/uL Sodium (135-145) mmol/L Carbon Dioxide (21.6-31.8) mmol/L BUN (9.0-27.0) mg/dL Est GFR (CKD-EPI) (>=60) BUN/Creatinine Ratio (12.00-20.00) Ratio Glucose (70-110) mg/dL POC Glucose (mg/dL) 346 H 312 H 169 H (70-110) mg/dL Calcium (8.7-10.3) mg/dL AST (14-35) U/L ALT (10-49) U/L C-Reactive Protein (0.00-0.80) mg/dL Total Protein (6.2-8.2) d/dL Albumin (3.8-4.9) d/dL Albumin/Globulin Ratio (1.60-3.17) Ratio Microbiology - Last 24 Hours (Table) 09/27/22 16:59 Blood Culture - Final Blood 09/27/22 16:59 Blood Culture - Final Blood 10/01/22 12:47 Blood Culture - Preliminary Blood Assessment and Plan Assessment: Acute hypoxemic respiratory failure secondary to community-acquired pneumonia and an acute exacerbation of systolic congestive heart failure. ProBNP 12,600. Pro-calcitonin 1.43. Ischemic cardiomyopathy with ejection fraction 30-35% Recent history of pneumonia secondary to E. coli and Pseudomonas and treated with 3 weeks of Levaquin in the outpatient setting Coronary artery disease with previous stent placement History of congestive heart failure Hypertension Hyperlipidemia Chronic obstructive pulmonary disease Former smoker Hypothyroidism Diabetes mellitus, type II Plan: The patient was seen and evaluated Medications reviewed Cleared for discharge Complete a course of antibiotics Continue diuretics Assessment for possible home oxygen Will need close follow-up with his senior engineer in [place] I have personally seen and examined the patient, performed the documentation and the assessment and plan as written. Number of minutes spent on the visit: 10.
[2022-10-03 10:24] VITALS: PULSE 66
--- NOTE | 2022-10-03 11:10 | XR ---
EXAMINATION TYPE: XR chest 1V portable DATE OF EXAM: 10/03/2022 HISTORY: Shortness of breath. COMPARISON: Ultrasound TECHNIQUE: Single view of the chest is submitted. FINDINGS: Demonstrated are scattered senescent parenchymal change. Basilar infiltrates persist although may be mildly improved. The heart is stable. Hilar and mediastinal structures are within normal limits. Degenerative changes are seen of the dorsal spine. IMPRESSION: 1. Basilar infiltrates persist although may be mildly improved.
[2022-10-03 12:14] VITALS: BMI 24.3
[2022-10-03 12:31] LABS: Glucose,Whole Blood 265 mg/dL (70-110)
--- NOTE | 2022-10-06 15:46 | P.DS ---
Providers Date of admission: 09/27/22 18:39 Expected date of discharge: 10/03/22 Attending physician: Liya Moss MD Consults: 09/27/22 18:39 Consult Physician Urgent Consulting Provider: Agnes Morris Consult Reason/Comments: Pneumonia, recently completed course of Levaquin Do you want consulting provider notified?: Yes 09/29/22 13:55 Consult Physician Urgent Consulting Provider: Linette Novoa Consult Reason/Comments: PNA, failed outpatient Do you want consulting provider notified?: Yes 09/30/22 11:06 Consult Physician Routine Consulting Provider: Vinnie Amaya Consult Reason/Comments: Heart failure Do you want consulting provider notified?: Yes Primary care physician: Physician Nonstaff Hospital Course: Final diagnosis Acute left basilar pneumonia with failure of outpatient treatment Acute hypoxic respiratory failure multifactorial secondary to left basilar pneumonia as well as CHF exacerbation Chronic obstructive pulmonary disease history History of recent Pseudomonas and E. coli infection History of congestive heart failure, acute on chronic exacerbation with EF of 30-35%, systolic dysfunction Ischemic cardiomyopathy with mild aortic stenosis History of pulmonary fibrosis History of atrial fibrillation, currently rate controlled Acute kidney injury Coronary artery disease history with stenting History of diabetes mellitus, type II, [id number] Hypertension Hyperlipidemia GI prophylaxis DVT prophylaxis Full code Discharge disposition Patient is being discharged in a stable condition with guarded prognosis to home. Patient will follow-up with primary care provider along with specialists in [place] where he resides in the outpatient setting upon discharge. Patient is to continue with Cipro and Avelox on discharge along with supplemental oxygen. Patient has been encouraged to follow-up with primary care provider along with pulmonary and cardiology outpatient.. Total time taken is greater than 35 minutes. Hospital course This is a 82-year-old male who was recently admitted with increased shortness of breath failure of outpatient treatment for pneumonia being closely monitored. Multiple medical consultations following including infectious disease and pulmonary along with cardiology and treated for pneumonia in the left basilar area along with CHF exacerbation. Patient did have an echo done with an EF of 30-35% with mild aortic stenosis and ischemic cardiomyopathy. Patient does have a pacemaker from previous. Patient was on IV Lasix for short stent showing some improvements in shortness of breath. Patient continues to be low pulse ox readings with minimal exertion and will be required to continue with home oxygen 4 L via nasal cannula to manage CHF. Arrangements are being made for discharge planning for home oxygen. Patient normally resides in [place] and will be slowly traveling back there with family. Encourage frequent resting stops and going to the local ER if symptoms become worse or persist. Currently no reports of chest pain, worsening shortness of breath, or palpitations. Patient is afebrile. No reports of nausea or vomiting and patient is tolerating diet. Patient will be discharged home today. Guarded prognosis given patient's significant comorbidities. Physical exam: Gen: This is a 82-year-old male who is awake, alert and oriented 3, thin built, elderly appearing HEENT: Head is atraumatic, normocephalic. Pupils equal, round. Sclerae is anicteric. NECK: Supple. No JVD. No lymphadenopathy. No thyromegaly. LUNGS: Diminished breath sounds bilaterally with some scattered rhonchi. No intercostal retractions. HEART: S1, S2 are muffled ABDOMEN: Soft. Bowel sounds are present. No masses. No tenderness. EXTREMITIES: No pedal edema. No calf tenderness. NEUROLOGICAL: Patient is awake, alert and oriented x3. Cranial nerves 2 through 12 are grossly intact. Please refer to medication reconciliation sheet for a list of medications. The impression and plan of care has been dictated by Porsche Gutierrez, Nurse Practitioner as directed. Dr. Dino MD I have performed a history and examination and MDM of this patient, discussed the same with the dictator, and agree with the dictator's assessment and plan as written ,documented as a scribe. Based on total visit time, I have performed more than 50% of the visit. Patient Condition at Discharge: Stable Plan - Discharge Summary New Discharge Prescriptions: New Torsemide [Demadex] 20 mg PO DAILY #30 tablet Spironolactone [Aldactone] 50 mg PO DAILY #60 tab Ipratropium-Albuterol Nebulize [Duoneb 0.5 mg-3 mg/3 ml Soln] 3 ml INHALATION QID 30 Days #120 each Acetaminophen Tab [Tylenol] 650 mg PO Q6HR PRN tab PRN Reason: Mild Pain Or Fever > 100.5 Moxifloxacin HCl [Avelox] 400 mg PO DAILY 7 Days #7 tab guaiFENesin SYRUP 100MG/5ML [Robitussin] 10 mg PO TID PRN #240 ml PRN Reason: Cough cefUROXime axetiL [Ceftin] 500 mg PO BID 7 Days #14 tab Continue Diclofenac Sodium Gel [Voltaren Gel] 2 gm TOPICAL QID PRN PRN Reason: Pain Ferrous Sulfate [Iron (65 MG Elemental)] 325 mg PO DAILY carvediloL [Coreg] 6.25 mg PO BID Glimepiride [Amaryl] 2 mg PO BID Fluticasone Nasal [place] [Flonase Nasal [place]] 1 spray EA NOSTRIL DAILY Ezetimibe [Zetia] 10 mg PO HS Atorvastatin [Lipitor] 40 mg PO HS allopurinoL [Zyloprim] 300 mg PO MOWEFR Sacubitril/Valsartan [Entresto 24 mg-26 mg Tablet] 1 tab PO BID Levothyroxine Sodium [Synthroid] 100 mcg PO DAILY Empagliflozin [Jardiance] 10 mg PO DAILY Fluticasone/Umeclidin/Vilanter [Trelegy Ellipta 100-62.5-25] 1 puff INHALATION RT-DAILY Clopidogrel [Plavix] 75 mg PO DAILY Discontinued Eplerenone 25 mg PO DAILY Discharge Medication List Atorvastatin [Lipitor] 40 mg PO HS 09/27/22 [History] Clopidogrel [Plavix] 75 mg PO DAILY 09/27/22 [History] Diclofenac Sodium Gel [Voltaren Gel] 2 gm TOPICAL QID PRN 09/27/22 [History] Empagliflozin [Jardiance] 10 mg PO DAILY 09/27/22 [History] Ezetimibe [Zetia] 10 mg PO HS 09/27/22 [History] Ferrous Sulfate [Iron (65 MG Elemental)] 325 mg PO DAILY 09/27/22 [History] Fluticasone Nasal [place] [Flonase Nasal [place]] 1 spray EA NOSTRIL DAILY 09/27/22 [History] Fluticasone/Umeclidin/Vilanter [Trelegy Ellipta 100-62.5-25] 1 puff INHALATION RT-DAILY 09/27/22 [History] Glimepiride [Amaryl] 2 mg PO BID 09/27/22 [History] Levothyroxine Sodium [Synthroid] 100 mcg PO DAILY 09/27/22 [History] Sacubitril/Valsartan [Entresto 24 mg-26 mg Tablet] 1 tab PO BID 09/27/22 [History] allopurinoL [Zyloprim] 300 mg PO MOWEFR 09/27/22 [History] carvediloL [Coreg] 6.25 mg PO BID 09/27/22 [History] Spironolactone [Aldactone] 50 mg PO DAILY #60 tab 10/02/22 [Rx] Torsemide [Demadex] 20 mg PO DAILY #30 tablet 10/02/22 [Rx] Acetaminophen Tab [Tylenol] 650 mg PO Q6HR PRN tab 10/03/22 [Rx] Ipratropium-Albuterol Nebulize [Duoneb 0.5 mg-3 mg/3 ml Soln] 3 ml INHALATION QID 30 Days #120 each 10/03/22 [Rx] Moxifloxacin HCl [Avelox] 400 mg PO DAILY 7 Days #7 tab 10/03/22 [Rx] cefUROXime axetiL [Ceftin] 500 mg PO BID 7 Days #14 tab 10/03/22 [Rx] guaiFENesin SYRUP 100MG/5ML [Robitussin] 10 mg PO TID PRN #240 ml 10/03/22 [Rx] Follow up Appointment(s)/Referral(s): Nonstaff,Physician [Primary Care Provider] - 1-2 days Patient Instructions/Handouts: Using Oxygen at Home (DC) Activity/Diet/Wound Care/Special Instructions: Activity Limited until follow-up Follow-up with primary care provider on discharge Follow-up with pulmonary and cardiology in one week Continue antibiotics for the next 7 days Continue breathing inhalational treatments along with inhalers Some prescriptions were sent to pharmacy down here at [facility] as well as [facility] in [place] [phone] -supplier of home o2 Discharge Disposition: HOME SELF-CARE
== END 2022-10-03 15:02 | disposition home or self-care (01) | DRG 193 ==
LOC: EC 15:17 → 4SSUR 18:39 → 5NMEDONC 19:41
PROVIDERS: ADMIT Internal Medicine; ATTEND Internal Medicine
DX: J18.9 Pneumonia, unspecified organism (principal); I50.43 Acute on chronic combined systolic (congestive) and diastolic (congestive) heart failure; J96.01 Acute respiratory failure with hypoxia; I13.0 Hypertensive heart and chronic kidney disease with heart failure and stage 1 through stage 4 chronic kidney disease, or unspecified chronic kidney disease; N17.9 Acute kidney failure, unspecified; I31.39 Other pericardial effusion (noninflammatory); J44.0 Chronic obstructive pulmonary disease with (acute) lower respiratory infection; E11.22 Type 2 diabetes mellitus with diabetic chronic kidney disease; N18.9 Chronic kidney disease, unspecified; Z79.84 Long term (current) use of oral hypoglycemic drugs; Z20.822 Contact with and (suspected) exposure to COVID-19; E03.9 Hypothyroidism, unspecified; E78.5 Hyperlipidemia, unspecified; I25.10 Atherosclerotic heart disease of native coronary artery without angina pectoris; I25.2 Old myocardial infarction; I25.5 Ischemic cardiomyopathy; I34.0 Nonrheumatic mitral (valve) insufficiency; I44.0 Atrioventricular block, first degree; I48.91 Unspecified atrial fibrillation; Z87.01 Personal history of pneumonia (recurrent); Z71.3 Dietary counseling and surveillance; Z90.49 Acquired absence of other specified parts of digestive tract; Z79.02 Long term (current) use of antithrombotics/antiplatelets; Z79.899 Other long term (current) drug therapy; Z79.890 Hormone replacement therapy; Z87.891 Personal history of nicotine dependence; Z95.0 Presence of cardiac pacemaker; Z95.5 Presence of coronary angioplasty implant and graft
CPT/HCPCS: 36415; 71045; 71046; 71250; 80048; 80053; 81001; 83036; 83605; 83880; 84145; 84484; 85025; 85379; 85610; 85730; 86140; 87040; 87070; 87205; 87636; 93005; 93306; 94640; 94760; 96360; 96361; 99285